=== PATIENT | male | born 1945 | race Caucasian/White ===

== ENCOUNTER 2020-02-05 09:29 | Outpatient (CLI) | payer MEDICARE, SELFPAY ==
[2020-02-05 09:43] LABS: Basophils Absolute Auto 0.1 K/mm3 (0.0-0.1); Basophils Percent Auto 0.9 % (0.2-1.2); Eosinophils Absolute Auto 0.3 K/mm3 (0-0.3); Eosinophils Percent Auto 4.3 % (0-4.4); Hematocrit 44.3 % (42.0-52.0); Hemoglobin 14.5 g/dL (14.0-18.0); Immature Granulocyte Absolute 0.01 K/mm3 (0.00-0.031); Immature Granulocyte Percent A 0.2 % (0-0.5); Lymphocytes Absolute Auto 1.79 K/mm3 (0.9-3.2); Lymphocytes Percent Auto 27.5 % (18.3-44.2); Mean Corpuscular HGB Conc 32.7 g/dl (32-36); Mean Corpuscular Hemoglobin 30.4 pg (26-34); Mean Corpuscular Volume 92.9 fl (80-100); Mean Platelet Volume 8.6 fl (7.4-10.4); Monocytes Absolute Auto 0.5 K/mm3 (0.1-0.6); Monocytes Percent Auto 8.1 % (2.6-8.5); Neutrophils Absolute Auto 3.8 K/mm3 (1.3-6.7); Platelet Count Result 173 k/mm3 (150-375); Red Blood Count 4.77 M/mm3 (4.6-6.20); White Blood Count 6.5 K/mm3 (4.5-10.0)
[2020-02-05 10:46] LABS: Alanine Aminotransferase 17 U/L (4-50); Albumin Level 4.5 g/dL (3.5-5.1); Alkaline Phosphatase 82 U/L (38-126); Aspartate Amino Transferase 23 U/L (17-59); Bilirubin,Total 0.6 mg/dL (0.2-1.3); Blood Urea Nitrogen 16 mg/dL (9-20); Calcium 9.1 mg/dL (8.4-10.2); Carbon Dioxide 29 mmol/L (22-30); Chloride 102 mmol/L (98-107); Estimated Glomerular Filt Rate > 60; Glucose 92 mg/dL (75-110); Lactate Dehydrogenase 343 U/L (313-618); Potassium 4.8 mmol/L (3.4-5.0); Sodium 135 mmol/L (137-145)
== END 2020-02-05 09:30 | disposition home or self-care (01) ==
LOC: ANHLAB 09:32
PROVIDERS: PCP Physician Assistant; Visit Provider Internal Medicine Hematology & Oncology
DX: C85.80 Other specified types of non-Hodgkin lymphoma, unspecified site (principal)
CPT/HCPCS: 36415; 80053; 83615; 85025

== ENCOUNTER 2020-12-01 09:22 | Outpatient (CLI) | payer MEDICARE, SELFPAY ==
[2020-12-01 09:36] LABS: Basophils Absolute Auto 0.1 K/mm3 (0.0-0.1); Basophils Percent Auto 0.6 % (0.2-1.2); Eosinophils Absolute Auto 0.3 K/mm3 (0-0.3); Eosinophils Percent Auto 3.2 % (0-4.4); Hematocrit 45.1 % (42.0-52.0); Hemoglobin 14.9 g/dL (14.0-18.0); Immature Granulocyte Absolute 0.03 K/mm3 (0.00-0.031); Immature Granulocyte Percent A 0.4 % (0-0.5); Lymphocytes Absolute Auto 1.83 K/mm3 (0.9-3.2); Lymphocytes Percent Auto 22.3 % (18.3-44.2); Mean Corpuscular Hemoglobin 31.1 pg (26-34); Mean Corpuscular Volume 94.2 fl (80-100); Mean Platelet Volume 8.6 fl (7.4-10.4); Monocytes Absolute Auto 0.7 K/mm3 (0.1-0.6); Neutrophils Absolute Auto 5.4 K/mm3 (1.3-6.7); Neutrophils Percent Auto 65.5 % (45.5-73.1); Platelet Count Result 185 k/mm3 (150-375); Red Blood Count 4.79 M/mm3 (4.6-6.20); Red Cell Distribution Width 12.2 % (11.5-14.5); White Blood Count 8.2 K/mm3 (4.5-10.0)
[2020-12-01 15:38] LABS: Alanine Aminotransferase 27 U/L (4-50); Albumin Level 4.9 g/dL (3.5-5.1); Alkaline Phosphatase 78 U/L (38-126); Anion Gap 7 mmol/L (8-16); Aspartate Amino Transferase 33 U/L (17-59); Bilirubin,Total 1.1 mg/dL (0.2-1.3); Blood Urea Nitrogen 17 mg/dL (9-20); Calcium 9.7 mg/dL (8.4-10.2); Carbon Dioxide 30 mmol/L (22-30); Chloride 102 mmol/L (98-107); Estimated Glomerular Filt Rate > 60; Glucose 96 mg/dL (75-110); Lactate Dehydrogenase 369 U/L (313-618); Potassium 4.6 mmol/L (3.4-5.0); Sodium 139 mmol/L (137-145)
== END 2020-12-01 09:23 | disposition home or self-care (01) ==
LOC: ANHLAB 09:24
PROVIDERS: PCP Physician Assistant; Visit Provider Internal Medicine Hematology & Oncology
DX: C85.80 Other specified types of non-Hodgkin lymphoma, unspecified site (principal)
CPT/HCPCS: 36415; 80053; 83615; 85025

== ENCOUNTER 2021-09-08 07:45 | Outpatient (CLI) | payer MEDICARE, SELFPAY ==
[2021-09-08 08:05] VITALS: PULSE 84; PULSE 89; O2SAT 87; O2SAT 96
[2021-09-08 08:10] VITALS: PULSE 92; O2SAT 92
[2021-09-08 08:15] VITALS: PULSE 88; O2SAT 91
--- NOTE | 2021-09-08 09:41 | HOMEO2EVAL ---
Evaluation was performed at [facility] Home Oxygen Evaluation RC: Home Oxygen (O2) Evaluation Start: 09/08/21 09:37 Freq: Status: Active Protocol: RPE Activity Type Activity Date Activity User E-Sign Co-Sign Detail Recorded Client Recorded Date Recorded By Document 09/08/21 08:05 KMV [email or web address] 09/08/21 09:40 KMV Document 09/08/21 08:05 KMV [email or web address] 09/08/21 09:40 KMV Document 09/08/21 08:10 KMV [email or web address] 09/08/21 09:40 KMV Document 09/08/21 08:15 KMV [email or web address] 09/08/21 09:40 KMV 09/08/21 09/08/21 09/08/21 08:05 08:05 08:10 Home O2 Evaluation Test Phase Resting Exercise Exercise Oxygen Delivery Room Air Room Air Nasal Cannula Oxygen Flow Rate (L/min) 2 Pulse Oximetry (90-100 %) 96 87 L 92 Pulse Rate (60-100 beats/min) 84 89 92 Activity Tolerance Good Rating of Perceived Dyspnea (PD) +3 Moderate Difficulty, But Can Continue Rate of Perceived Exertion (PE) 12 Treatment Charges O2 Evaluation - Outpatient 09/08/21 08:15 Home O2 Evaluation Test Phase Resting Oxygen Delivery Room Air Oxygen Flow Rate (L/min) Pulse Oximetry (90-100 %) 91 Pulse Rate (60-100 beats/min) 88 Activity Tolerance Rating of Perceived Dyspnea (PD) Rate of Perceived Exertion (PE) Treatment Charges
== END 2021-09-08 07:46 | disposition home or self-care (01) ==
PROVIDERS: PCP Physician Assistant; Visit Provider Nurse Practitioner
DX: J44.9 Chronic obstructive pulmonary disease, unspecified (principal)
CPT/HCPCS: 94618

== ENCOUNTER 2021-09-24 08:54 | Outpatient (CLI) | payer MEDICARE, SELFPAY ==
--- NOTE | 2021-09-24 12:08 | P.PCNPFT_ITS ---
PFT Procedure Performed PFT Procedure Performed Spirometry with Pre/Post Bronchodilator Plethysmography (Lung Vol) Diffusing Cap (DLCO) Flow Vol Loop PFT Interpretation This is a pulmonary function test with pre and post-bronchodilator spirometry, plethysmography and diffusing capacity. The test was performed and results interpreted in accordance with the 2019 and 2005 ATS/ERS Task Force guidelines respectively using the Global Lung Function Initiative-2012 reference equations. Patient demonstrated good effort and cooperation. Reproducibility criteria were met. The quality of the pre bronchodilator spirometry maneuver was Grade A and post bronchodilator spirometry maneuver was Grade A. Findings: Spirometry: There is decreased maximal expiratory airflow at all lung volumes with concave expiratory flow tracing. Contour the inspiratory flow tracing is normal. The pre bronchodilator FVC is 2.87 L, 79% predicted. The pre bronchodilator FEV1 is 1.04 L, 38% predicted. The FEV1: FVC ratio was 36%. The post bronchodilator FVC is 3.16 L, representing a 10% increase. The post bronchodilator FEV1 is 1.17 L, representing a 130 mL increase which corresponds to a 12% increase. The post bronchodilator FEV1: FVC ratio is 37%. Plethysmography: The total lung capacity is 7.62 L, 117% predicted. The f unctional residual capacity is 5.86 L, 169% predicted. The residual volume is 4.58 L, 187% predicted. Diffusing capacity: The diffusing capacity unadjusted for hemoglobin is 15.0, 64% predicted. The diffusing capacity adjusted for alveolar volume is 3.31, 86% predicted. In comparison to previous pulmonary function test on 12/12/2017 the post bronchodilator FVC has decreased from 3.81 L to 3.16 L. The post bronchodilator FEV1 has decreased from 1.49 L to 1.17 L. The total lung capacity is unchanged from 8.63 L to 7.62 L. The functional residual capacity is unchanged from 6.50 L to 5.86 L. The residual volume is unchanged from 4.82 L to 4.58 L. The diffusing capacity unadjusted for hemoglobin is unchanged from 14.8 to 15.0. The diffusing capacity adjusted for alveolar volume is unchanged from 3.34 to 3.31 Impression: There is a severe obstructive abnormality without significant improvement after inhaling a single dose of albuterol. The increase in residual volume is consistent with air trapping from an obstructive abnormality. Hyperinflation is present is demonstrated by the increase in functional residual capacity and is consistent with an obstructive abnormality. The diffusing capacity unadjusted for hemoglobin is mildly decreased and normalizes when adjusted for alveolar volume. in comparison to previous pulmonary function test on 12/12/2017 there is a greater than anticipated time dependent decrease in post bronchodilator FVC, post bronchodilator FEV1 with no significant change in the total lung capacity, functional residual capacity, residual volume, or DLCO. Clinical correlation is recommended.
== END 2021-09-24 08:55 | disposition home or self-care (01) ==
PROVIDERS: PCP Physician Assistant; Visit Provider Nurse Practitioner
DX: J44.9 Chronic obstructive pulmonary disease, unspecified (principal); R94.2 Abnormal results of pulmonary function studies
CPT/HCPCS: 94060; 94726; 94729

== ENCOUNTER 2021-11-25 09:35 | Outpatient (CLI) | payer MEDICARE, SELFPAY ==
[2021-11-25 09:59] LABS: Basophils Percent Auto 0.4 % (0.2-1.2); Eosinophils Absolute Auto 0.1 K/mm3 (0-0.3); Eosinophils Percent Auto 1.1 % (0-4.4); Hematocrit 47.9 % (42.0-52.0); Hemoglobin 15.1 g/dL (14.0-18.0); Immature Granulocyte Absolute 0.07 K/mm3 (0.00-0.031); Immature Granulocyte Percent A 0.7 % (0-0.5); Lymphocytes Absolute Auto 1.83 K/mm3 (0.9-3.2); Lymphocytes Percent Auto 19.5 % (18.3-44.2); Mean Corpuscular HGB Conc 31.5 g/dl (32-36); Mean Corpuscular Hemoglobin 30.6 pg (26-34); Mean Platelet Volume 8.7 fl (7.4-10.4); Monocytes Absolute Auto 0.6 K/mm3 (0.1-0.6); Monocytes Percent Auto 6.8 % (2.6-8.5); Neutrophils Absolute Auto 6.7 K/mm3 (1.3-6.7); Neutrophils Percent Auto 71.5 % (45.5-73.1); Platelet Count Result 184 k/mm3 (150-375); Red Blood Count 4.94 M/mm3 (4.6-6.20); White Blood Count 9.4 K/mm3 (4.5-10.0)
[2021-11-25 12:07] LABS: Alanine Aminotransferase 26 U/L (4-50); Albumin Level 4.5 g/dL (3.5-5.1); Alkaline Phosphatase 74 U/L (38-126); Anion Gap 2 mmol/L (8-16); Aspartate Amino Transferase 27 U/L (17-59); Bilirubin,Total 0.6 mg/dL (0.2-1.3); Blood Urea Nitrogen 22 mg/dL (9-20); Calcium 9.4 mg/dL (8.4-10.2); Carbon Dioxide 32 mmol/L (22-30); Chloride 102 mmol/L (98-107); Estimated Glomerular Filt Rate > 60; Glucose 79 mg/dL (65-110); Lactate Dehydrogenase 388 U/L (313-618); Potassium 4.7 mmol/L (3.4-5.0); Sodium 136 mmol/L (137-145)
== END 2021-11-25 09:36 | disposition home or self-care (01) ==
LOC: ANHLAB 09:39
PROVIDERS: PCP Physician Assistant; Visit Provider Internal Medicine Hematology & Oncology
DX: C85.80 Other specified types of non-Hodgkin lymphoma, unspecified site (principal)
CPT/HCPCS: 36415; 80053; 83615; 85025

== ENCOUNTER 2022-05-03 07:04 | Inpatient (IN) | payer MEDICARE, SELFPAY ==
[2022-05-03] VITALS (27 sets, daily range): BP systolic 103–170; BP diastolic 65–103; PULSE 78–112; RESP 11–24; TEMP 36.3–36.6; O2SAT 94–100; BMI 26.1
--- NOTE | ~2022-05-03 | US_ITS ---
EXAMINATION: US abdomen limited DATE: 05/03/2022 17:14 INDICATION: pancreatitis, r/o gallstones TECHNIQUE: Multiple grayscale and Doppler ultrasound images of limited portions of the abdomen were o btained. COMPARISON: CTPA abdomen and pelvis, same date. FINDINGS: Poorly visualized. Echogenic liver. No liver mass. No surface nodularity. Normal hepatopeta l flow in the main portal vein. The gallbladder is normal with no abnormal wall thickening, perichole cystic fluid or stones. The common bile duct measures 5 mm. There was no sonographic Max sign. IMPRESSION: Poor visualization of the pancreas. Echogenic liver, most commonly due to steatosis but also can be s een with hepatitis and fibrosis. No gallstones detected. Reviewed, dictated and finalized at location K. IMPRESSION: Poor visualization of the pancreas. Echogenic liver, most commonly due to steat osis but also can be seen with hepatitis and fibrosis. No gallstones detected.
--- NOTE | ~2022-05-03 | CT_ITS ---
EXAMINATION: CTA chest PE abdomen pel DATE: 05/03/2022 08:43 INDICATION: Epigastric abdominal pain. TECHNIQUE: Computed tomography angiography (CTA) of the chest was performed with 100 mL Omnipaque-350 intravenous contrast timed to evaluate the pulmonary arteries. Coronal maximum intensity projection 3D-reconstructions were created by the technologist. Computed tomography (CT) of the abdomen and pelv is was performed with intravenous contrast. Automated exposure control and iterative reconstruction t echnique were employed. The dose-length product was 1051.33 mGy-cm. COMPARISON: None. FINDINGS: CTA chest: There is moderate emphysema. There is mild atelectasis bilaterally. No pleural effusion. T he heart size is normal. There are coronary artery calcifications. No pericardial effusion. There is no pulmonary embolus. There is mild thoracic spondylosis. Thoracic dextroscoliosis is noted. There is mild chronic anterior wedging of T12 vertebral body. CT abdomen and pelvis: The liver, gallbladder, spleen, and adrenal glands are normal. There is fat st randing around the body and tail of the pancreas, consistent with acute interstitial pancreatitis. Th ere is a calcification in the tail of the pancreas, consistent with chronic pancreatitis. Right kidne y is normal. There is moderate atrophy of left kidney. There is a 7 mm cyst in left kidney. The prost ate is mildly enlarged. There is a right inguinal hernia containing nonobstructed small bowel. There is a left inguinal hernia containing fat. There is diverticulosis of the colon without evidence of di verticulitis. The appendix is normal. There are no dilated loops of bowel. There are no pathologicall y enlarged lymph nodes. There is no free intraperitoneal fluid. There is moderate lumbar spondylosis. Lumbar levoscoliosis is noted. IMPRESSION: 1. Acute interstitial pancreatitis. 2. Moderate emphysema. 3. Right inguinal hernia containing nonobstructed small bowel. 4. Left inguinal hernia containing fat. Reviewed, dictated and finalized at location A.
--- NOTE | ~2022-05-03 | XR_ITS ---
EXAMINATION: XR chest 2V DATE: 05/03/2022 07:51 INDICATION: Shortness of breath and epigastric pain TECHNIQUE: Frontal and lateral views of the chest are obtained COMPARISON: 12/04/2018 FINDINGS: There are minimal airspace opacities of the right lung base. No pleural effusion or pneumot horax. The cardiomediastinal silhouette is normal. There is mild thoracic spondylosis. IMPRESSION: 1. Minimal right basilar airspace opacity, likely atelectasis versus pneumonia Reviewed, dictated and finalized at location A.
--- NOTE | 2022-05-03 07:16 | ECG_ITS ---
Measurements Intervals [place] Rate: 108 P: ND: 0 QRS: -49 QRSD: 80 T: 79 QT: 307 QTc: 412 Interpretive Statements SINUS TACHYCARDIA LEFTWARD AXIS Electronically Signed On 05-03-2022 8:53:42 CDT by Harsh Mckeon M.D.
--- NOTE | 2022-05-03 07:38 | ED.SOB ---
HPI - SOB/Dyspnea General Chief Complaint: Shortness of Breath/Dyspnea Stated Complaint: Chest pain/SOB Time Seen by Provider: 05/03/22 07:37 Source: patient Mode of arrival: ambulatory Limitations: no limitations History of Present Illness HPI Narrative: 76 years old white male presented to the ED with epigastric pain, started 2 months ago, intermittent, steady over the last 3 days associated with nausea. He denies any fever, chills, vomiting. Patient denies any history of abdominal surgery. Related Data Allergies Allergy/AdvReac Type Severity Reaction Status Date / Time No Known Allergies Allergy Verified 05/03/22 07:18 Review of Systems Review of Systems: All systems reviewed & are unremarkable except as noted in HPI and below Exam Narrative: General appearance: Well-developed, well-nourished Skin: Normal color Head: Normocephalic, nontraumatic Eyes: Clear conjunctiva ENT: Oropharynx normal, ears normal, nose normal Neck: Supple, nontender Chest and respiratory: Airway patent, no respiratory distress, no accessory muscle use Heart: Regular rate/rhythm Abdomen: Soft, severe tenderness epigastric area, quiet bowel sounds, no organomegaly Vascular: Normal peripheral pulses, normal capillary refill. Musculoskeletal: Normal range of motion, nontender back Neurologic: Alert and oriented ?3, PHYSICIAN'S ASSISTANT is normal as tested, no gross motor deficit Course Consultations Consultation #1: Dr. Escobedo Date: 05/03/22 Time: 10:06 Vital Signs Vital signs: Vital Signs Temperature 36.6 C 05/03/22 07:11 Pulse Rate 110 H 05/03/22 07:11 Respiratory Rate 18 05/03/22 07:11 Blood Pressure 170/103 H 05/03/22 07:11 Pulse Oximetry 98 05/03/22 07:11 Oxygen Delivery Nasal Cannula 05/03/22 07:11 Oxygen Flow Rate 2 05/03/22 07:11 Temperature 36.6 C 05/03/22 07:11 Pulse Rate 88 05/03/22 09:31 Respiratory Rate 17 05/03/22 09:31 Blood Pressure 149/81 H 05/03/22 09:31 Pulse Oximetry 98 05/03/22 09:31 Oxygen Delivery Nasal Cannula 05/03/22 08:22 Oxygen Flow Rate 2 05/03/22 08:22 MDM - SOB/Dyspnea Differential Diagnosis Differential diagnosis: Likely pulmonary embolism and other (Cholecystitis, pancreatitis, diverticulitis) Lab Data Result diagrams: 05/03/22 07:42 05/03/22 07:42 Labs: Lab Results 05/03/22 05/03/22 05/03/22 Range/Units 07:42 07:42 07:42 WBC 11.3 H (4.5-10.0) K/mm3 RBC 4.96 (4.6-6.20) M/mm3 Hgb 15.0 (14.0-18.0) g/dL Hct 45.8 (42.0-52.0) % MCV 92.3 (80-100) fl MCH 30.2 (26-34) pg MCHC 32.8 (32-36) g/dl RDW 12.9 (11.5-14.5) % Plt Count 229 (150-375) k/mm3 MPV 8.8 (7.4-10.4) fl Immature Gran % (Auto) 1.5 H (0-0.5) % Neut % (Auto) 72.2 (45.5-73.1) % Lymph % (Auto) 13.8 L (18.3-44.2) % Hawkins % (Auto) 8.1 (2.6-8.5) % Eos % (Auto) 4.1 (0-4.4) % Baso % (Auto) 0.3 (0.2-1.2) % Lymph # (Auto) 1.56 (0.9-3.2) K/mm3 Hawkins # (Auto) 0.9 H (0.1-0.6) K/mm3 Eos # (Auto) 0.5 H (0-0.3) K/mm3 Baso # (Auto) 0.0 (0.0-0.1) K/mm3 Abs Immat Gran (auto) 0.17 H (0.00-0.031) K/mm3 Absolute Neuts (auto) 8.2 H (1.3-6.7) K/mm3 Absolute Nucleated RBC 0.0 (0.0-0.012) K/mm3 Nucleated RBC % 0.0 (0.0-0.2) % PT 13.6 (11.1-14.7) Seconds INR 1.1 APTT 27.8 (22.3-36.8) SECONDS D-Dimer 0.50 H (<0.48) ug/mL Sodium 133 L (137-145) mmol/L Potassium 4.4 (3.4-5.0) mmol/L Chloride 94 L (98-107) mmol/L Carbon Dioxide 28 (22-30) mmol/L Anion Gap 11 (8-16) mmol/L BUN 24 H (9-20) mg/dL Creatinine 1.00 (0.7-1.3) mg/dL Estim Creat Clear Calc
[2022-05-03 07:51] LABS: Basophils Percent Auto 0.3 % (0.2-1.2); Eosinophils Absolute Auto 0.5 K/mm3 (0-0.3); Eosinophils Percent Auto 4.1 % (0-4.4); Hematocrit 45.8 % (42.0-52.0); Immature Granulocyte Absolute 0.17 K/mm3 (0.00-0.031); Immature Granulocyte Percent A 1.5 % (0-0.5); Lymphocytes Absolute Auto 1.56 K/mm3 (0.9-3.2); Lymphocytes Percent Auto 13.8 % (18.3-44.2); Mean Corpuscular HGB Conc 32.8 g/dl (32-36); Mean Corpuscular Hemoglobin 30.2 pg (26-34); Mean Corpuscular Volume 92.3 fl (80-100); Mean Platelet Volume 8.8 fl (7.4-10.4); Monocytes Absolute Auto 0.9 K/mm3 (0.1-0.6); Monocytes Percent Auto 8.1 % (2.6-8.5); Neutrophils Absolute Auto 8.2 K/mm3 (1.3-6.7); Neutrophils Percent Auto 72.2 % (45.5-73.1); Platelet Count Result 229 k/mm3 (150-375); Red Blood Count 4.96 M/mm3 (4.6-6.20); Red Cell Distribution Width 12.9 % (11.5-14.5); White Blood Count 11.3 K/mm3 (4.5-10.0)
[2022-05-03 07:58] LABS: INR 1.1; Prothrombin Time 13.6 Seconds (11.1-14.7)
[2022-05-03 07:59] LABS: Partial Thromboplastin Time 27.8 SECONDS (22.3-36.8)
[2022-05-03 08:06] LABS: Alanine Aminotransferase 18 U/L (6-50); Albumin Level 4.6 g/dL (3.5-5.1); Alkaline Phosphatase 97 U/L (38-126); Anion Gap 11 mmol/L (8-16); Aspartate Amino Transferase 27 U/L (17-59); Bilirubin,Total 1.7 mg/dL (0.2-1.3); Blood Urea Nitrogen 24 mg/dL (9-20); Calcium 9.5 mg/dL (8.4-10.2); Carbon Dioxide 28 mmol/L (22-30); Chloride 94 mmol/L (98-107); Estimated CRCL calculation 53 ml/min; Estimated Glomerular Filt Rate > 60; Glucose 103 mg/dL (65-110); Potassium 4.4 mmol/L (3.4-5.0); Sodium 133 mmol/L (137-145)
[2022-05-03 08:12] LABS: Lipase 3211 U/L (23-300)
[2022-05-03 08:20] LABS: NT Pro B Type Natriuretic Pept 43 pg/mL (5-100); Troponin I < 0.012 ng/mL (0.000-0.034)
[2022-05-03] MEDS: MORPHINE SULFATE (*CRX) 4 MG/ML INJ IV PUSH (08:20)
--- NOTE | 2022-05-03 08:20 | PC.NURSE ---
Morphine 4 mg and Zofran 4 mg given IVP for chest pain 01/11. Unable to document in NOV due to computer malfunction.
[2022-05-03] MEDS: ONDANSETRON INJ 4 MG/2 ML VIAL IV PUSH ×2 (08:47→18:17)
[2022-05-03 10:25] LABS: Troponin I < 0.012 ng/mL (0.000-0.034)
--- OUTSIDE RECORDS SUMMARY | 2022-05-03 10:40 | XMS_ITS ---
:1945 Author Care Team Providers Name Role Phone ROSA ALIYAH PINEDO Primary Care Provider [phone] Allergies Code Code System Name Reaction Severity Status Onset NKDA ? Notes: Some allergies listed in Docume nt: #[id number] could not be added to this patient's chart. Please review this docu ment and add these allergies to the patient's chart manually as needed. Medications Name Status Start Date Stop Date ? ? amlodipine 10 mg tablet Completed ? 10/31/19 19 amlodipine 5 mg tablet Active ? Not avail able amoxicillin 875 mg-potassium clavulanate 125 mg tablet Active ? Not available Take 1 tablet twice a day by oral route as directed for 10 days . Anoro Ellipta 62.5 mcg-25 mcg/actuation powder for inhalation Co mpleted ? 07/16/2018 Inhale 1 puff every day by inhalation route as directed for 30 days. atenolol 50 mg tablet Completed ? 02/08/2018 Caltrate + D3 Plus Minerals Completed ? 10/06 one daily cefuroxime axetil 250 mg tablet Completed ? 10/04/2017 ciprofloxacin 500 mg tablet Completed ? 02/02 cyclobenzaprine 5 mg tablet Completed ? 02/04 TAKE 1 TABLET BY MOUTH THREE TIMES DAILY NEEDED doxycycline hyclate 100 mg capsule Completed ? 10/31/2018 levofloxacin 750 mg tablet Completed ? 04/30 losartan 100 mg tablet Active ? Not avail able methylprednisolone 4 mg tablets in a dose pack Completed ? 04/30/2019 ondansetron HCl 4 mg tablet Completed ? 04/05 TAKE 1 TABLET BY MOUTH EVERY 8 HOURS NEEDED FOR NAUSEA EMESI S oseltamivir 75 mg capsule Completed ? 2021 TAKE 1 CAPSULE BY MOUTH TWICE DAILY prednisone 1
--- OUTSIDE RECORDS SUMMARY | 2022-05-03 10:40 | XMS_ITS | Encounter Summary ---
:1945 Author Care Team Providers Name Role Phone Skye PINEDO Primary Care Provider [phone] Reason for Visit F/U Hospital (non TRN) f/u from hospital admission Assessment and Plan 1. Pneumonia pt had pneumonia in recent hospitalizat ion with COPD exacerbation. check repeat CXR. ? XR, chest, 2 view 2. Acute exacerbation of chronic obstru ctive airways disease improving. stable. on portable oxygen. Discussion Note: None recorded.Patient educational handouts: No information available. Plan of Care Reminders Provider Appointments Any 06/01/2022 CANDICE Ponce 9:00AM ? Any 09/23/2022 CANDICE Ponce 9:30AM ? Medicare Wellness 11/09/2022 SHAHIDA Shirley 9:30AM Lab None recorded. ? ? Referral None recorded. ? ? Procedures None recorded. ? ? Surgeries None recorded. ? ? Imaging XR, Chest, 2 View 02/24/2022 [facility] Medications Name Start Date ? ? amlodipine 5 mg tablet ? TAKE 1 TABLET EVERY DAY amoxicillin 875 mg-potassium clavulanate 125 mg tablet ? Take 1 tablet twice a day by oral route as directed f or 10 days. losartan 100 mg tablet ? TAKE 1 TABLET EVERY DAY prednisone 20 mg tablet ? Take 2 tablets every day by oral route in the morning for 5 days. Trelegy Ellipta 200 mcg-62.5 mcg-25 mcg powder for inh alation ? Inhale 1 puff every day by inhalation route as direct ed for 90 days. Ventolin HFA 90 mcg/actuation aerosol inhaler ? inhale 1-2
--- OUTSIDE RECORDS SUMMARY | 2022-05-03 10:40 | XMS_ITS ---
:1945 Author Care Team Providers Name Role Phone ROSA PINEDO Primary Care Provider [phone] Allergies Code Code System Name Reaction Severity Status Onset NKDA ? Medications Name Status Start Date Stop Date ? ? amlodipine 10 mg tablet Completed ? 03/14/20 19 amlodipine 5 mg tablet Active ? Not avail able amoxicillin 875 mg-potassium clavulanate 125 mg tablet Completed ? 03/11/2020 Anoro Ellipta 62.5 mcg-25 mcg/actuation powder for inhalation Co mpleted ? 07/16/2018 Inhale 1 puff every day by inhalation route as directed for 30 days. One puff daily, discontinue Symbicort atenolol 50 mg tablet Completed ? 02/08/2018 cefuroxime axetil 250 mg tablet Completed ? 02/08/2018 ciprofloxacin 500 mg tablet Completed ? 03/2018 doxycycline hyclate 100 mg capsule Completed ? 09/11/2019 levofloxacin 750 mg tablet Completed ? 03/14 losartan 100 mg tablet Active ? Not avail able methylprednisolone 4 mg tablets in a dose pack Completed ? 03/14/2019 ondansetron HCl 4 mg tablet Completed ? 04/2020 TAKE 1 TABLET BY MOUTH EVERY 8 HOURS NEEDED FOR NAUSEA EMESI S prednisone 20 mg tablet Completed ? 09/11/19 20 Symbicort 160 mcg-4.5 mcg/actuation HFA aerosol inhaler Active ? Not available valsartan 160 mg tablet Completed ? 03/14/20 19 Ventolin HFA 90 mcg/actuation aerosol inhaler Completed ? 03/14/2019 Problems Name Status Onset Date Source ? Asthma Active 10/31/2017 ? History of Tobacco Use Active 08/09/2018 ? Notes: lymhpoma Procedures Date Name Performed by ? 09/04/2004 Repair of Ruptured Tendon Information no t a
--- OUTSIDE RECORDS SUMMARY | 2022-05-03 10:40 | XMS_ITS | Encounter Summary ---
:1945 Author Care Team Providers Name Role Phone Skye PINEDO Primary Care Provider [phone] Reason for Visit routine check up routine f/u appt Assessment and Plan 1. Chronic obstructive lung disease stable on symbicort 160/4.5mcg 2 puffs bid. 2. Benign essential hypertension stable on amlodipine 5mg daily and losa rtan 100mg daily. 3. Polymyalgia rheumatica now taking 5mg daily and will be on 2.5 mg for next step. then 1mg daily. 4. Hyperlipidemia fasting lipids are due. ? lipid panel, serum 5. Long-term oxygen therapy pt is going to discuss increasing his l iters for activity on his appt next week with Pulmonary. 6. 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 follows with oncraegan lozada 7. Blood glucose abnormal monitoring A1c with [facility] use of pr ednisone for PMR ? HbA1c (hemoglobin A1c), blood 8. Long-term drug therapy all routine labs are due in may. ? hepatic function panel, serum ? BMP, serum or plasma ? CBC w/ auto diff ? TSH + free T4, serum Discussion Note: None recorded.Patient educational handouts: No information available. Plan of Care Reminders Provider Appointments Any 06/01/2022 9:00AM CANDICE Martínez ? Any 09/23/2022 9:30AM CANDICE Martínez ? Medicare Wellness 11/09/2022 9:30AM SHAHIDA Gonzáles Lab Lipid Panel,
--- OUTSIDE RECORDS SUMMARY | 2022-05-03 10:40 | XMS_ITS | Encounter Summary ---
:1945 Author Care Team Providers Name Role Phone Skye PINEDO Primary Care Provider [phone] Reason for Visit F/U Hospital (non TRN) exac of COPD, was at [facility] approx February 12, 2022 Assessment and Plan Assessment Note Spent up to 20 minutes preparing to see the patient (eg, review of tests), obtaining and/or reviewing separately obtained his tory, performing a medically appropriate examination and evaluation, counseling a nd educating the patient, ordering medications, tests, along with documenti ng clinical information in the electronic health record, independently interpretin g results and communicating results to the patient. 1. Chronic obstructive lung disease PFT 09/24/21 FEV1:FVC ratio 36%. FEV1 38% Improvement of 12% after bronchodilator TLC 117 DLCO 64 Alpha 1 normal MM Eosinophils normal Continue Trelegy Ellipta 200, samples to patient today. We have discussed the role of triple the rapy in severe lung disease and I have encouraged compliance daily. I have discouraged Symbicort alternating Continue rescue MDI PRN. Discussed reportable signs and symptoms. RTC in 2 months, PRN for concerns. 2. Dyspnea on exertion Labs as detailed above. Six minute walk test as above Recommend pulmonary rehab, he will consi zeny 3. Dependence on supplemental oxygen Required 2 liters with activity an RA a t rest per 6MWT 09/08/21
[2022-05-03] MEDS: SODIUM CHLORIDE 0.9% IV 1,000 ML 250 ML IV CONT ×3 (12:45→22:00)
[2022-05-03] MEDS: HYDROmorphone HCL INJ (*CRX) 1 MG/ML SYR 0.5 MG IV PUSH ×3 (12:46→21:56)
[2022-05-03 13:43] LABS: Troponin I < 0.012 ng/mL (0.000-0.034)
--- NOTE | 2022-05-03 14:10 | PM.IMHP ---
H&P: HPI History of Present Illness Date/Time: 05/03/22 14:10 Chief Complaint: Epigastric pain. Narrative: This is a very pleasant 76-year-old male with COPD on home oxygen, hypertension, polymyalgia rheumatica, hypertension, and non-Hodgkin lymphoma and hypertension who presented to the emergency department from home for evaluation of epigastric pain. He has had intermittent, vague epigastric discomfort for the last month or so however the last 2 or 3 days the pain has become more consistent and intends. He has difficulties describing the pain but he does say that he feels quite bloated and distended. He has only had some egg salad and old male the last couple of days due to a decrease in appetite however he has not really noticed that food makes his pain better or worse. He has also had nausea but no vomiting. Vital signs were stable on arrival today. Pertinent labs include a white blood cell count of 11.3, sodium 133, and lipase 3211. Imaging did show acute interstitial pancreatitis and he is being admitted in this setting. At the time my evaluation he is feeling a bit better but he continues to have bloating. He is thirsty but not really hungry. He denies personal and family history of pancreatitis. He was previously a heavy drinker but has not drank in over 10 years. He has no known history of gallbladder disease or gallstones. No other known risk factors for pancreatitis. Review of Systems Review of Systems: Twelve systems were reviewed. Weight has remained stable. He is intermittently prednisone for symptoms related to his polymyalgia rheumatica though not on daily steroids. He has been treated for non-Hodgkin's lymphoma and is my understanding that that is in remission potentially. He has been following with urology for elevated PSA. No fever, chills, or sweats however last week he did have of fever and he was prescribed Augmentin ?given history of frequent pneumonia. Chest pain or shortness of breath. No melena or hematochezia. Except as documented, all other systems were reviewed and are negative. [facility] Past Medical History Medical History (Updated 05/03/22 @ 21:25 by Mirna Leija PA-C) Chronic obstructive pulmonary disease Diverticulitis Elevated PSA Hypertension Non Hodgkin's lymphoma Polymyalgia rheumatica Rupture of left biceps tendon Surgical History Surgical History (Updated 05/03/22 @ 14:13 by Mirna Leija PA-C) History of colonoscopy (01/2011) Per Dr. Sohan Escobedo. Diverticulosis and internal hemorrhoids. History of mandibular surgery (1963) Repair of broken jaw. History of orthopedic surgery Repair of left bicep tendon rupture. Family History Family History Father Acute myocardial infarction Sibling Hypertension Son Leukemia Sibling Breast cancer Social History Social History Social History: Surrogate medical decision maker: Bianca Constantino, spouse. Code status: Full code. Smoking status: Former smoker Tobacco type: cigarettes Second hand tobacco smoke exposure: No Alcohol intake: former Substance use: never Additional living arrangements comments: The patient lives with his in [place]. Additional occupation/education comments: Retired. Spiritual care concerns: No Meds Home Medications and Allergies Home Medications Medication Instructions Recorded Confirmed Type albuterol sulfate 2 puff inhalation PRN PRN Dyspnea 05/03/22 05/03/22 History amlodipine 5 mg tablet 5 mg PO DAILY 05/03/22 05/03/22 History amoxicillin 875 mg-potassium 1 tablet PO BID 05/03/22 05/03/22 History clavulanate 125 mg tablet cholecalciferol (vitamin D3) 125 125 mcg PO DAILY 05/03/22 05/03/22 History mcg (5,000 unit) tablet (Vitamin D3) fluticasone fur. 200 mcg-umeclid 1 inh inhalation DAILY 05/03/22 05/03/22 History 62.5 mcg-vi
--- NOTE | 2022-05-03 15:03 | WPDGICN ---
Assessment and Plan Assessment and plan (1) Acute pancreatitis: Code(s): K85.90 - Acute pancreatitis without necrosis or infection, unspecified Status: Acute Assessment and Plan: Patient admitted with acute pancreatitis. Etiology unclear. He has a very distant history of alcohol intake. No known gallstones. No gallstones described on CT scan. Plan is for gallbladder ultrasound. Would recommend initially patient be kept NPO monitor lipase. Pain control. Consider advancing diet depending on results of ultrasound and results follow-up lab work. Will follow with you during this hospital stay. (2) Chronic obstructive pulmonary disease: Code(s): J44.9 - Chronic obstructive pulmonary disease, unspecified Status: Acute (3) Polymyalgia rheumatica: Code(s): M35.3 - Polymyalgia rheumatica Status: Acute (4) Hx of non-Hodgkin's lymphoma: Code(s): Z85.72 - Personal history of non-Hodgkin lymphomas Status: Acute GI Consult Note Consult date/time: 05/03/22 15:03 Reason for consult: Acute pancreatitis. HPI: Jin Constantino is a 76 year old male I am asked see at the request of the emergency room. Because of acute pancreatitis. Patient reports over the last 1-2 months has had vague epigastric discomfort. He states over last 2-3 days he has had mid abdominal discomfort rather intense. He of lost his appetite. Because of the intense pain he present to the emergency room in the ER lipase was noted to be elevated. CT scan consistent with acute interstitial pancreatitis. Patient denies any prior episodes of pancreatitis. He states that he used to drink alcohol heavily but discontinued this 10 years ago. He reports he has a past medical history of polymyalgia rheumatica. He currently is being treated with non-Hodgkin's lymphoma and felt to be stable in potentially in remission. He has an elevated PSA to over 10. But no signs of cancer despite follow it by Urology. Patient reports an underlying history of COPD. Two months ago was hospitalized with pneumonia. Colonoscopy 10 years ago was unremarkable. Review of Systems Review of Systems: Review of systems noncontributory. PENDING SALE TO [facility] Past Medical History Medical History (Updated 05/03/22 @ 15:07 by Sohan Escobedo MD) Chronic obstructive pulmonary disease Diverticulitis Hypertension Lymphoma Polymyalgia rheumatica Rupture of left biceps tendon Surgical History Surgical History (Updated 08/30/22 @ 14:13 by Mirna Leija PA-C) History of colonoscopy (01/2011) Per Dr. Sohan Escobedo. Diverticulosis and internal hemorrhoids. History of mandibular surgery (1963) Repair of broken jaw. History of orthopedic surgery Repair of left bicep tendon rupture. Family History Family History Father Acute myocardial infarction Sibling Hypertension Son Leukemia Sibling Breast cancer Social History Social History (Updated 05/03/22 @ 14:15 by Mirna Leija PA-C) Social History: Surrogate medical decision maker: Bianca Constantino, spouse. Code status: Full code. Smoking status: Former smoker Tobacco type: cigarettes Second hand tobacco smoke exposure: No Alcohol intake: former Substance use: never Additional living arrangements comments: The patient lives with his in [place]. Additional occupation/education comments: Retired. Spiritual care concerns: No Meds Home Medications and Allergies Allergies Allergy/AdvReac Type Severity Reaction Status Date / Time No Known Allergies Allergy Verified 05/03/22 11:27 Vital Signs Vital Signs - 24 hr 05/03/22 07:11 05/03/22 08:22 05/03/22 08:22 Temperature 97.8 F Pulse Rate 110 H 88 Respiratory Rate 18 Blood Pressure 170/103 H Pulse Oximetry 98 96 Oxygen Delivery Nasal Cannula Nasal Cannula Oxygen Flow Rate 2 2 05/03/22 07:15 05/03/22 07:1
[2022-05-04] MEDS: HYDROmorphone HCL INJ (*CRX) 1 MG/ML SYR 0.5 MG IV PUSH (04:04)
[2022-05-04 06:00] VITALS: BP 127/60; PULSE 79; RESP 17; TEMP 35.7; O2SAT 93
[2022-05-04] MEDS: SODIUM CHLORIDE 0.9% IV 1,000 ML 250 ML IV CONT (06:16)
[2022-05-04 06:37] LABS: Basophils Percent Auto 0.5 % (0.2-1.2); Eosinophils Absolute Auto 0.5 K/mm3 (0-0.3); Eosinophils Percent Auto 5.8 % (0-4.4); Hematocrit 38.5 % (42.0-52.0); Hemoglobin 12.3 g/dL (14.0-18.0); Immature Granulocyte Absolute 0.08 K/mm3 (0.00-0.031); Lymphocytes Absolute Auto 1.54 K/mm3 (0.9-3.2); Lymphocytes Percent Auto 18.3 % (18.3-44.2); Mean Corpuscular HGB Conc 31.9 g/dl (32-36); Mean Corpuscular Hemoglobin 30.2 pg (26-34); Mean Corpuscular Volume 94.6 fl (80-100); Mean Platelet Volume 9.1 fl (7.4-10.4); Monocytes Percent Auto 11.5 % (2.6-8.5); Neutrophils Absolute Auto 5.3 K/mm3 (1.3-6.7); Neutrophils Percent Auto 62.9 % (45.5-73.1); Platelet Count Result 172 k/mm3 (150-375); Red Blood Count 4.07 M/mm3 (4.6-6.20); Red Cell Distribution Width 12.8 % (11.5-14.5); White Blood Count 8.4 K/mm3 (4.5-10.0)
[2022-05-04 06:49] LABS: Alanine Aminotransferase 13 U/L (6-50); Albumin Level 3.3 g/dL (3.5-5.1); Alkaline Phosphatase 76 U/L (38-126); Anion Gap 8 mmol/L (8-16); Aspartate Amino Transferase 19 U/L (17-59); Blood Urea Nitrogen 19 mg/dL (9-20); Carbon Dioxide 26 mmol/L (22-30); Chloride 100 mmol/L (98-107); Estimated CRCL calculation 53 ml/min; Estimated Glomerular Filt Rate > 60; Glucose 77 mg/dL (65-110); Lipase 1877 U/L (23-300); Magnesium 2.3 mg/dL (1.6-2.3); Potassium 4.5 mmol/L (3.4-5.0); Sodium 134 mmol/L (137-145); Triglycerides 108 mg/dL (<150)
--- NOTE | 2022-05-04 07:47 | WPDGIPROGNO ---
Progress Note: A&P Assessment and Plan (1) Acute pancreatitis: Code(s): K85.90 - Acute pancreatitis without necrosis or infection, unspecified Status: Acute Assessment and Plan: Patient with acute pancreatitis. His lipase has decreased today to 1877. clinically improving. Will start ice chips with clear liquid diet. Continue to monitor lipase. Advance diet to slowly to low fat diet over the next several days. Ultrasound of the gallbladder revealed no gallstones. Suspected idiopathic pancreatitis, Despite patient having a distant history of heavy alcohol use. (2) Chronic obstructive pulmonary disease: Code(s): J44.9 - Chronic obstructive pulmonary disease, unspecified Status: Acute (3) Polymyalgia rheumatica: Code(s): M35.3 - Polymyalgia rheumatica Status: Acute (4) Hx of non-Hodgkin's lymphoma: Code(s): Z85.72 - Personal history of non-Hodgkin lymphomas Status: Acute (5) Non Hodgkin's lymphoma: Code(s): C85.90 - Non-Hodgkin lymphoma, unspecified, unspecified site Status: Acute Subjective Date/time seen: 05/04/22 07:47 Patient alert comfortable this morning. He did receive pain injection and hour prior to evaluation. He reports he did feel pain recur requested pain shot. He has had no nausea vomiting. He is becoming somewhat thirsty. No nausea or vomiting reported. Review of Systems Review of Systems: Review of systems noncontributory. Exam Narrative: Physical exam reveals patient to be alert. Vital signs are stable. He is afebrile. HEENT exam reveals no icterus. Lungs are clear to auscultation and percussion. Heart is without murmur. Abdomen bowel sounds present soft nontender with no organomegaly. Objective Data Vital Signs Vital Signs: Vital Signs - 24 hr 05/03/22 08:22 05/03/22 08:22 05/03/22 07:53 Temperature Pulse Rate 88 101 H Respiratory Rate 18 Blood Pressure Pulse Oximetry 96 100 Oxygen Delivery Nasal Cannula Oxygen Flow Rate 2 05/03/22 07:54 05/03/22 08:02 05/03/22 08:18 Temperature Pulse Rate 99 94 Respiratory Rate 18 20 Blood Pressure 140/85 Pulse Oximetry 100 97 97 Oxygen Delivery Oxygen Flow Rate 05/03/22 08:30 05/03/22 08:45 05/03/22 08:50 Temperature Pulse Rate 88 84 80 Respiratory Rate 12 11 L 14 Blood Pressure 139/73 Pulse Oximetry 97 100 99 Oxygen Delivery Oxygen Flow Rate 05/03/22 09:00 05/03/22 09:01 05/03/22 09:02 Temperature Pulse Rate 81 82 83 Respiratory Rate 14 15 18 Blood Pressure 135/73 Pulse Oximetry 97 97 97 Oxygen Delivery Oxygen Flow Rate 05/03/22 09:17 05/03/22 09:30 05/03/22 09:31 Temperature Pulse Rate 90 96 88 Respiratory Rate 22 H 18 17 Blood Pressure 149/81 H Pulse Oximetry 97 96 98 Oxygen Delivery Oxygen Flow Rate 05/03/22 10:27 05/03/22 10:59 05/03/22 11:30 Temperature 97.3 F L Pulse Rate 88 78 84 Respiratory Rate 20 18 16 Blood Pressure 103/86 130/66 Pulse Oximetry 99 97 100 Oxygen Delivery Oxygen Flow Rate 05/03/22 14:00 05/03/22 11:30 05/03/22 20:40 Temperature 97.8 F Pulse Rate 84 84 Respiratory Rate 15 15 Blood Pressure 136/65 Pulse Oximetry 99 98 99 Oxygen Delivery Nasal Cannula Room Air Oxygen Flow Rate 2 05/03/22 22:00 05/03/22 21:54 05/03/22 15:22 Temperature 97.5 F L 97.8 F Pulse Rate 95 Respiratory Rate 16 15 Blood Pressure 150/66 H 136/65 Pulse Oximetry 94 94 99 Oxygen Delivery Room Air Oxygen Flow Rate Intake/Output Intake/Output: Intake & Output 05/01/22 05/02/22 05/03/22 05/04/22 23:59 23:59 23:59 23:59 Intake Total 1999 999 Balance 1999 1000 Meds/Results Medications: Active Medications Generic Name Dose Route Start Last Admin Trade Name Freq PRN Reason Stop Dose Admin Enoxaparin Sodium 40 mg 05/04/22 09:00 Enoxaparin 40 Mg/0.4 Ml Syringe SUB-Q DAILY JESSICA Fluticasone/Umecli
[2022-05-04] MEDS: FLUTICASONE/UMECLIDIN/VILANTER 200-62.5-25 MCG ELLIPTA 1 PUFF INHALATION (08:54)
[2022-05-04] MEDS: ENOXAPARIN 40 MG/0.4 ML SYRINGE SUB-Q (09:29)
--- NOTE | 2022-05-04 13:06 | PM.IMPN ---
Progress Note: A&P Assessment and Plan (1) Acute pancreatitis: Code(s): K85.90 - Acute pancreatitis without necrosis or infection, unspecified Status: Acute Assessment and Plan: Likely idiopathic distant history of alcohol abuse ( no alcohol in >10 years) no gallstones noted on CT or RUQ U/S appreciate gastroenterology consultation continue with IV fluid rehydration clear liquid diet. Advance as tolerated per GI recommendations analgesics and antiemetics are available as needed lipase trending down. 1877 today (2) Chronic obstructive pulmonary disease: Code(s): J44.9 - Chronic obstructive pulmonary disease, unspecified Status: Acute Assessment and Plan: No acute issues. continue maintenance inhalers typically on 2 L supplemental oxygen during the day and 3 L at night O2 sats running in the upper 90s therefore he is currently on room air. Continue to monitor O2 sats closely (3) Hypertension: Code(s): I10 - Essential (primary) hypertension Status: Acute Assessment and Plan: Blood pressures reviewed and have been well controlled. Last BP 127/60 resume home losartan and amlodipine monitor BP trends (4) Polymyalgia rheumatica: Code(s): M35.3 - Polymyalgia rheumatica Status: Acute Assessment and Plan: No issues at this time Recently completed a short course of prednisone with improvement in symptoms. Subjective Date/time seen: 05/04/22 13:06 Interval history: date of service: 05/04/2022 Jin Constantino is a 76 old male with a history of COPD maintained on home oxygen, hypertension, non-Hodgkin's lymphoma, polymyalgia rheumatica who is seen in follow-up for acute pancreatitis. Is feeling much better today. He endorses 1/10 epigastric discomfort and states it is barely noticeable. He is able to tolerate clear liquids this morning. He had apple juice, Ensure, and Jell- O. He tolerated all of this well. Denies nausea or vomiting. No abdominal pain, cramping, or bloating. Denies fevers, chills, dizziness, lightheadedness. He does endorse feeling slightly weak, but believes this is due to not having any real food to eat over the past several days. He denies shortness of breath, wheezing, cough, chest pain, palpitations. He has been able to get up and walk to the bathroom without any difficulty. He denies dysuria, hematuria, urgency, or frequency. Review of Systems Review of Systems: All systems reviewed & are unremarkable except as noted in HPI and below Exam Narrative: General: well-nourished, well-appearing 76-year-old male, sitting up in bed, comfortable, NARD Neuro: awake, alert and oriented x4, speech clear, no focal neuro deficits noted HEENMT: normocephalic, atraumatic, EOMI, sclerae anicteric, moist oral mucosa Respiratory: clear to auscultation bilaterally, nonlabored breathing Cardio: regular rate, regular rhythm with S1-S2 Abdomen: nondistended, normoactive bowel sounds, soft, nontender to palpation Extremities: no edema, erythema, or tenderness to palpation, DP pulses 2+ bilaterally Skin: no rashes or lesions, warm and dry Psych: appropriate mood and affect, judgment and insight intact Objective Data Vital Signs Vital Signs: Vital Signs - 24 hr 05/03/22 14:00 05/03/22 20:40 05/03/22 22:00 Temperature 97.8 F 97.5 F L Pulse Rate 84 84 95 Respiratory Rate 15 15 16 Blood Pressure 136/65 150/66 H Pulse Oximetry 99 99 94 Oxygen Delivery Room Air 05/03/22 21:54 05/04/22 06:00 05/04/22 08:00 Temperature 96.3 F L Pulse Rate 79 Respiratory Rate 17 Blood Pressure 127/60 Pulse Oximetry 94 93 Oxygen Delivery Room Air Room Air 05/03/22 15:22 Temperature 97.8 F Pulse Rate Respiratory Rate 15 Blood Pressure 136/65 Pulse Oximetry 99 Oxygen Delivery Intake/Output Intake/Output: Intake & Output 05/01/22 05/02/22 05/03/22 05/04/22 23:59 23:59 23:59 23:
[2022-05-04 14:00] VITALS: BP 124/58; PULSE 69; RESP 15; TEMP 36.6; O2SAT 100
[2022-05-04] MEDS: SODIUM CHLORIDE 0.9% IV 1,000 ML 85 ML IV CONT (16:22)
[2022-05-04 20:35] VITALS: PULSE 69; RESP 16; O2SAT 98
[2022-05-04 22:00] VITALS: BP 112/61; PULSE 69; RESP 16; TEMP 35.9; O2SAT 98
[2022-05-05] MEDS: ACETAMINOPHEN 325 MG TABLET 650 MG PO (04:49)
[2022-05-05] MEDS: SODIUM CHLORIDE 0.9% IV 1,000 ML 85 ML IV CONT (04:52)
[2022-05-05 05:37] VITALS: BP 130/65; PULSE 75; RESP 18; TEMP 35.9; O2SAT 95
[2022-05-05 06:19] LABS: Hematocrit 35.6 % (42.0-52.0); Hemoglobin 11.7 g/dL (14.0-18.0); Mean Corpuscular HGB Conc 32.9 g/dl (32-36); Mean Corpuscular Hemoglobin 30.4 pg (26-34); Mean Corpuscular Volume 92.5 fl (80-100); Mean Platelet Volume 8.9 fl (7.4-10.4); Platelet Count Result 153 k/mm3 (150-375); Red Blood Count 3.85 M/mm3 (4.6-6.20); Red Cell Distribution Width 12.6 % (11.5-14.5); White Blood Count 5.7 K/mm3 (4.5-10.0)
[2022-05-05 06:32] LABS: Anion Gap 8 mmol/L (8-16); Blood Urea Nitrogen 9 mg/dL (9-20); Carbon Dioxide 25 mmol/L (22-30); Chloride 102 mmol/L (98-107); Estimated CRCL calculation 65 ml/min; Estimated Glomerular Filt Rate > 60; Glucose 97 mg/dL (65-110); Lipase 1564 U/L (23-300); Potassium 3.9 mmol/L (3.4-5.0); Sodium 135 mmol/L (137-145)
--- NOTE | 2022-05-05 07:49 | WPDGIPROGNO ---
Progress Note: A&P Assessment and Plan (1) Acute pancreatitis: Code(s): K85.90 - Acute pancreatitis without necrosis or infection, unspecified Status: Acute Assessment and Plan: Patient with apparent idiopathic pancreatitis. Improving clinically. Lipase 1564 today. Plan is to advance slowly to a low-fat diet. Will allow full liquid diet today. In advance as stated. Discharge when pain free. Outpatient lipase advised to ensure complete resolution. (2) Hx of non-Hodgkin's lymphoma: Code(s): Z85.72 - Personal history of non-Hodgkin lymphomas Status: Acute (3) Polymyalgia rheumatica: Code(s): M35.3 - Polymyalgia rheumatica Status: Acute Subjective Date/time seen: 05/05/22 07:49 Patient alert comfortable this morning. Ambulating in the room. States abdominal pain is lessened. Tolerated liquid diet without difficulty. Review of Systems Review of Systems: Review of systems noncontributory. Exam Narrative: Physical exam reveals patient to be alert. Vital signs stable. HEENT exam reveals no icterus. Lungs are clear. Heart without murmur. Abdomen bowel sounds present soft nontender with no organomegaly. Objective Data Vital Signs Vital Signs: Vital Signs - 24 hr 05/04/22 08:00 05/04/22 14:00 05/04/22 22:00 Temperature 97.9 F 96.7 F L Pulse Rate 69 69 Respiratory Rate 15 16 Blood Pressure 124/58 L 112/61 Pulse Oximetry 100 98 Oxygen Delivery Room Air 05/04/22 20:35 05/05/22 05:37 Temperature 96.6 F L Pulse Rate 69 75 Respiratory Rate 16 18 Blood Pressure 130/65 Pulse Oximetry 98 95 Oxygen Delivery Room Air Intake/Output Intake/Output: Intake & Output 05/02/22 05/03/22 05/04/22 05/05/22 23:59 23:59 23:59 23:59 Intake Total 1999 2980 1200 Balance 1999 2980 1200 Meds/Results Medications: Active Medications Generic Name Dose Route Start Last Admin Trade Name Freq PRN Reason Stop Dose Admin Acetaminophen 650 mg 05/04/22 13:21 05/05/22 04:49 Acetaminophen 325 Mg Tablet PO 650 mg Q4H PRN Administration pain 1-3 Amlodipine Besylate 5 mg 05/05/22 09:00 Amlodipine Besylate 5 Mg Tablet PO DAILY JESSICA Enoxaparin Sodium 40 mg 05/04/22 09:00 05/04/22 09:29 Enoxaparin 40 Mg/0.4 Ml Syringe SUB-Q 40 mg DAILY JESSICA Administration Fluticasone/Umeclidinium/Vilanterol 1 puff 05/04/22 08:00 05/04/22 08:54 Fluticasone/Umeclidin/Vilanter 200-62.5-25 Mcg Ellipta INHALATION 1 puff DAILYRT JESSICA Administration Hydromorphone HCl 0.5 mg 05/03/22 10:07 05/04/22 04:04 Hydromorphone Hcl Inj (*Crx) 1 Mg/Ml Syr IV PUSH 0.5 mg Q4H PRN Administration Pain Rated 7-10 Sodium Chloride 1,000 mls @ 85 mls/hr 05/03/22 10:10 05/05/22 04:52 Normal Saline Iv IV CONT 85 mls/hr .[id number] JESSICA Administration Losartan Potassium 100 mg 05/05/22 09:00 Losartan Potassium 100 Mg Tablet PO DAILY JESSICA Ondansetron HCl 4 mg 05/03/22 10:07 05/03/22 18:17 Ondansetron Inj 4 Mg/2 Ml Vial IV PUSH 4 mg Q4H PRN Administration Nausea Vitamin D 5,000 units 05/05/22 09:00 Cholecalciferol 1,000 Units Tablet PO DAILY [facility] Radiology Results: ITS Impressions Chest X-Ray 05/03/22 08:21 IMPRESSION: 1. Minimal right basilar airspace opacity, likely atelectasis versus pneumonia Chest/Abdomen/Pelvis CTA 05/03/22 08:52 IMPRESSION: 1. Acute interstitial pancreatitis. 2. Moderate emphysema. 3. Right inguinal hernia containing nonobstructed small bowel. 4. Left inguinal hernia containing fat. Abdomen Ultrasound 05/03/22 17:16 IMPRESSION: Poor visualization of the pancreas. Echogenic liver, most commonly due to steatosis but also can be seen with hepatitis and fibrosis. No gallstones detected. Labs Labs: Laboratory Results - last 24 hr 05/05/22 05/05/22 06:00 06:00 WBC 5.7 RBC 3.85 L Hgb 11.7 L Hct 35.6 L MCV 92.5 MCH 30
[2022-05-05 08:00] VITALS: PULSE 75; RESP 18; O2SAT 95
[2022-05-05] MEDS: FLUTICASONE/UMECLIDIN/VILANTER 200-62.5-25 MCG ELLIPTA 1 PUFF INHALATION (08:35)
[2022-05-05] MEDS: CHOLECALCIFEROL 1,000 UNITS TABLET 5000 UNITS PO (09:19)
[2022-05-05] MEDS: ENOXAPARIN 40 MG/0.4 ML SYRINGE SUB-Q (09:20)
[2022-05-05] MEDS: LOSARTAN POTASSIUM 100 MG TABLET PO (09:20)
[2022-05-05] MEDS: amLODIPine BESYLATE 5 MG TABLET PO (09:20)
[2022-05-05 12:58] VITALS: BMI 26.4
[2022-05-05 14:00] VITALS: BP 114/62; PULSE 69; RESP 14; TEMP 36.5; O2SAT 96
--- NOTE | 2022-05-05 15:34 | PM.DS ---
DS: Admitting Diagnosis Discharge Date 05/05/2022 Admitting Diagnosis acute pancreatitis DS: Discharge Diagnosis Discharge Diagnosis (1) Acute pancreatitis: Code(s): K85.90 - Acute pancreatitis without necrosis or infection, unspecified Status: Acute Assessment and Plan: Likely idiopathic distant history of alcohol abuse ( no alcohol in >10 years) no gallstones noted on CT or RUQ U/S Seen in consultation by Gastroenterology Patient was adequately rehydrated with IV fluids Diet was slowly advanced and he was eventually able to tolerate a low-fat diet which he will continue Lipase with overall improvement. Her GI recommendations, he will obtain an outpatient lipase within 1 week to ensure complete resolution (2) Chronic obstructive pulmonary disease: Code(s): J44.9 - Chronic obstructive pulmonary disease, unspecified Status: Acute Assessment and Plan: No acute issues. continue maintenance inhalers typically on 2 L supplemental oxygen during the day and 3 L at night (3) Hypertension: Code(s): I10 - Essential (primary) hypertension Status: Acute Assessment and Plan: Blood pressures reviewed and were well controlled. Continue home losartan and amlodipine (4) Polymyalgia rheumatica: Code(s): M35.3 - Polymyalgia rheumatica Status: Acute Assessment and Plan: No issues at this time Recently completed a short course of prednisone with improvement in symptoms. DS: Summary Hospital Course Hospital Course: date of admission: 05/03/2022 date of discharge: 05/05/2022 Jin Constantino is a 76 old male with a history of COPD maintained on home oxygen, hypertension, non-Hodgkin's lymphoma, polymyalgia rheumatica? who presented to the emergency department on 05/03/2022 with complaints of epigastric pain worsened over the past 3 days with associated nausea. On presentation to the ED, his BP was elevated, he was mildly tachycardic, additional vital signs were stable, WBC 11.3, lipase 3200, additional laboratory workup unremarkable, CT of the abdomen/ pelvis showed acute interstitial pancreatitis. He was admitted to the hospitalist service for further evaluation management was seen in consultation by Gastroenterology. Please see above for further details. Patient had clinical improvement following bowel rest and IV rehydration. Following symptomatic improvement, his diet was slowly advanced and he was eventually able to tolerate a low-fat diet. His lipase improved and he was feeling back to his usual state of health. Given his overall improvement, he was determined to no longer require inpatient care and was discharged in hemodynamically stable condition on 05/05/2022. He will obtain outpatient lipase in order to assess for complete resolution per GI recommendations. I discussed with the patient worrisome signs and symptoms for which to return and he was educated on his medications. He is aware of need for low-fat diet. He will follow-up with his primary care provider in 1-2 weeks. Status at Discharge Functional status at discharge: independent ambulation Overall status at discharge: patient is progressing back to baseline Time Spent with Patient Time attestation: Total time spent providing and/or coordinating discharge services: 39 minutes Time spent: Greater than 30 minutes Exam Narrative: General: well-nourished, well-appearing 76-year-old male, sitting up in bed, comfortable, NARD Neuro: awake, alert and oriented x4, speech clear, no focal neuro deficits noted HEENMT: normocephalic, atraumatic, EOMI, sclerae anicteric, moist oral mucosa Respiratory: clear to auscultation bilaterally, nonlabored breathing Cardio: regular rate, regular rhythm with S1-S2 Abdomen: nondistended, normoactive bowel sounds, soft, nontender to palpation Extremities: no edema, erythema, or tenderness to palpation, DP pulses 2+ bilaterally Skin: n
== END 2022-05-05 17:10 | disposition home or self-care (01) | DRG 439 ==
LOC: ANHED 10:06 → ANH3MEDSUR 10:37
PROVIDERS: Physician Assistant; Admitting Provider Internal Medicine; Emergency Provider Emergency Medicine; PCP Physician Assistant; Visit Provider Physician Assistant
DX: K85.00 Idiopathic acute pancreatitis without necrosis or infection (principal); C85.90 Non-Hodgkin lymphoma, unspecified, unspecified site; J44.9 Chronic obstructive pulmonary disease, unspecified; I10 Essential (primary) hypertension; M35.3 Polymyalgia rheumatica; R97.20 Elevated prostate specific antigen [PSA]; Z99.81 Dependence on supplemental oxygen; Z87.891 Personal history of nicotine dependence
CPT/HCPCS: 36415; 71046; 71275; 74177; 76705; 80048; 80053; 83690; 83735; 83880; 84478; 84484; 85025; 85027; 85380; 85610; 85730; 93005; 94640; 96374; 96375; 99285; A9270; J1170; J1650; J2270; J2405; J7030; Q9967

== ENCOUNTER 2022-08-15 13:22 | Outpatient (CLI) | payer MEDICARE, SELFPAY ==
--- NOTE | ~2022-08-15 | CT_ITS ---
CT Scan of the Chest without Contrast: Clinical Indication: COPD, follow-up prior abnormal chest CT Technique: Contiguous sections were acquired throughout the chest without intravenous contrast. Dose reduction technique was used on this scan by utilizing automated exposure control and iterative recon struction technique. The dose-length product (DLP) was 316.17 mGy-cm. COMPARISON: 05/03/2022 Findings: There is no evidence of any significant mediastinal, hilar or axillary lymphadenopathy. Coronary autumn ry calcifications are present. No aortic aneurysm. There is no evidence of pleural or pericardial effusion. The lungs are clear. No pulmonary nodules or infiltrates are noted. Mild to moderate emphysema noted. Images through the upper abdomen reveal relatively atrophic left kidney. Impression: [id number] emphysema, stable from prior exam. Reviewed, dictated and finalized at location [] [employer] Impression: [id number] emphysema, stable from prior exam.
== END 2022-08-15 13:23 | disposition home or self-care (01) ==
LOC: ANHIMG 13:26
PROVIDERS: PCP Physician Assistant; Visit Provider Nurse Practitioner
DX: R91.8 Other nonspecific abnormal finding of lung field (principal); J43.9 Emphysema, unspecified
CPT/HCPCS: 71250

== ENCOUNTER 2022-09-29 12:22 | Outpatient (CLI) | payer MEDICARE, SELFPAY ==
--- NOTE | 2022-09-30 12:51 | WPDSIXMINUTE ---
Six Minute Walk Procedure Procedure Performed Pulmonary Stress Test (6 min walk) Six Minute Walk Six Minute Walk: This 6 minute walk test was carried out with the patient breathing ambient air. The baseline pre-walk oxyhemoglobin saturation was 98%. The patient walked 305 m with no stops during testing. During the walk oxyhemoglobin saturation remained in the range of 96% to 98%. Impression: No evidence of oxyhemoglobin desaturation on this testing.
== END 2022-09-29 12:23 | disposition home or self-care (01) ==
LOC: ANHPFT 12:22
PROVIDERS: PCP Physician Assistant; Visit Provider Nurse Practitioner
DX: J44.9 Chronic obstructive pulmonary disease, unspecified (principal)
CPT/HCPCS: 94618

== ENCOUNTER 2022-12-07 09:37 | Outpatient (CLI) | payer MEDICARE, SELFPAY ==
[2022-12-07 10:06] LABS: Basophils Absolute Auto 0.1 K/mm3 (0.0-0.1); Basophils Percent Auto 0.6 % (0.2-1.2); Eosinophils Absolute Auto 0.3 K/mm3 (0-0.3); Eosinophils Percent Auto 3.1 % (0-4.4); Hematocrit 44.4 % (42.0-52.0); Hemoglobin 14.2 g/dL (14.0-18.0); Immature Granulocyte Absolute 0.04 K/mm3 (0.00-0.031); Immature Granulocyte Percent A 0.5 % (0-0.5); Lymphocytes Absolute Auto 2.36 K/mm3 (0.9-3.2); Lymphocytes Percent Auto 28.9 % (18.3-44.2); Mean Corpuscular Hemoglobin 30.3 pg (26-34); Mean Corpuscular Volume 94.7 fl (80-100); Mean Platelet Volume 8.6 fl (7.4-10.4); Monocytes Absolute Auto 0.6 K/mm3 (0.1-0.6); Monocytes Percent Auto 7.7 % (2.6-8.5); Neutrophils Absolute Auto 4.8 K/mm3 (1.3-6.7); Neutrophils Percent Auto 59.2 % (45.5-73.1); Platelet Count Result 194 k/mm3 (150-375); Red Blood Count 4.69 M/mm3 (4.6-6.20); Red Cell Distribution Width 12.6 % (11.5-14.5); White Blood Count 8.2 K/mm3 (4.5-10.0)
[2022-12-07 10:11] LABS: Blood Urea Nitrogen 19 mg/dL (8-26); Carbon Dioxide 33 mmol/L (22-30); Chloride 103 mmol/L (98-109); Estimated Glomerular Filt Rate > 60; Glucose 96 mg/dL (70-105); Ionized Calcium (POC) 1.26 mmol/L (1.11-1.31); Potassium 4.6 mmol/L (3.5-4.9); Sodium 142 mmol/L (138-146)
[2022-12-07 12:05] LABS: Alanine Aminotransferase 28 U/L (6-50); Albumin Level 4.5 g/dL (3.5-5.1); Alkaline Phosphatase 82 U/L (38-126); Anion Gap 3 mmol/L (8-16); Aspartate Amino Transferase 27 U/L (17-59); Bilirubin,Total 0.8 mg/dL (0.2-1.3); Blood Urea Nitrogen 19 mg/dL (9-20); Calcium 9.3 mg/dL (8.4-10.2); Carbon Dioxide 32 mmol/L (22-30); Chloride 105 mmol/L (98-107); Estimated Glomerular Filt Rate > 60; Glucose 96 mg/dL (65-110); Potassium 4.7 mmol/L (3.4-5.0); Sodium 140 mmol/L (137-145)
== END 2022-12-07 09:38 | disposition home or self-care (01) ==
LOC: ANHLAB 09:40
PROVIDERS: PCP Physician Assistant; Visit Provider Internal Medicine Hematology & Oncology
DX: C85.80 Other specified types of non-Hodgkin lymphoma, unspecified site (principal)
CPT/HCPCS: 36415; 80047; 80053; 85025

== ENCOUNTER 2023-07-15 18:36 | Emergency (ER) | payer MEDICARE, SELFPAY ==
[2023-07-15] VITALS (12 sets, daily range): BP systolic 155–205; BP diastolic 68–84; PULSE 78–96; RESP 16–20; TEMP 36.4; O2SAT 92–98
--- NOTE | ~2023-07-15 | CT_ITS ---
EXAMINATION: CT abdomen pelvis w con DATE: 07/15/2023 19:30 INDICATION: lower abd pain, nausea, hx divertic TECHNIQUE: Computed tomography (CT) of the abdomen and pelvis was performed with 100 mL Omnipaque-350 intravenous contrast. Automated exposure control and iterative reconstruction technique were employe d. The dose-length product was 668.81 mGy-cm. COMPARISON: 05/03/2022. FINDINGS: Lower thorax: Emphysematous change Liver: Normal. Biliary/Gallbladder: Gallbladder is normal. No bile duct dilation. Pancreas: No mass or duct dilation. Spleen: Normal. Adrenals:No mass. Kidneys: Left upper pole scarring. Left pelviectasis, caliectasis, and urothelial enhancement in the upper pole. Mild left hydronephrosis and inflammatory change. No suspicious mass. No right hydronephr osis. GI tract: No small or large bowel dilation. Normal appendix. Diverticulosis without diverticulitis. 5 Mesentery/Peritoneum: No ascites, mass, or free air. Retroperitoneum: No mass. Pelvis: Pelvic organs are within normal limits. Soft Tissues: Soft tissues and body wall unremarkable. Bones: No acute osseous finding. IMPRESSION: Left pyelitis. No CT evidence of diverticulitis. Reviewed, dictated and finalized at location K. IFIED MASSAGE THERAPIST
--- NOTE | 2023-07-15 18:52 | ED.ABDPAIN ---
HPI - Abdominal Pain General Chief Complaint: Abdominal Pain Stated Complaint: abdominal pain Time Seen by Provider: 07/15/23 18:43 Source: patient Mode of arrival: ambulatory Limitations: no limitations History of Present Illness HPI narrative: Patient is a 78-year-old male who presents to the ED with report of lower abdominal pain. Patient reports the pain began around 2:00 p.m. today. It has been intermittent but progressively worsening since then. He tried taking an old pain pill earlier today but denied improvement. Reports nausea, denies vomiting. Denies fevers. He did think he may be constipated today and had a small bowel movement this morning which did not change the pain. He last had a bowel movement yesterday which was normal. Denies rectal bleeding. Denies urinary complaints. He does note history of diverticulitis. Related Data Home Medications Medication Instructions Recorded Confirmed albuterol sulfate 2 puff inhalation PRN PRN Dyspnea 05/03/22 05/03/22 amlodipine 5 mg tablet 5 mg PO DAILY 05/03/22 05/03/22 amoxicillin 875 mg-potassium 1 tablet PO BID 05/03/22 05/03/22 clavulanate 125 mg tablet cholecalciferol (vitamin D3) 125 125 mcg PO DAILY 05/03/22 05/03/22 mcg (5,000 unit) tablet (Vitamin D3) fluticasone fur. 200 mcg-umeclid 1 inh inhalation DAILY 05/03/22 05/03/22 62.5 mcg-vilant 25 mcg inhalat.powder (Trelegy Ellipta) losartan 100 mg tablet 100 mg PO DAILY 05/03/22 05/03/22 Allergies Allergy/AdvReac Type Severity Reaction Status Date / Time No Known Allergies Allergy Verified 07/15/23 18:45 Review of Systems Review of Systems: CONSTITUTIONAL: Denies fever, chills, or sweats. CARDIOVASCULAR: Denies chest pain. RESPIRATORY: Denies cough or dyspnea. GASTROINTESTINAL: See HPI. GENITOURINARY: Denies dysuria or hematuria. SKIN: Denies rash or itching. MUSCULOSKELETAL: Denies back pain, joint pain, or myalgia. All systems reviewed & are unremarkable except as noted in HPI and below PMFSH Past Medical History Medical History Chronic obstructive pulmonary disease Diverticulitis Elevated PSA Hypertension Non Hodgkin's lymphoma Polymyalgia rheumatica Rupture of left biceps tendon Surgical History Surgical History History of colonoscopy (01/2011) Per Dr. Sohan Escobedo. Diverticulosis and internal hemorrhoids. History of mandibular surgery (1964) Repair of broken jaw. History of orthopedic surgery Repair of left bicep tendon rupture. Family History Family History Father Acute myocardial infarction Sibling Hypertension Son Leukemia Sibling Breast cancer Social History Social History Social History: Surrogate medical decision maker: Bianca Constantino, spouse. Code status: Full code. Smoking status: Former smoker Tobacco type: cigarettes Second hand tobacco smoke exposure: No Alcohol intake: former Substance use: never Additional living arrangements comments: The patient lives with his in [place]. Additional occupation/education comments: Retired. Spiritual care concerns: No Exam Narrative: GENERAL: Mildly uncomfortable appearing, well-nourished, non-toxic, in no acute distress. HEAD: Normocephalic, atraumatic. NECK: Supple. No adenopathy, no masses. RESPIRATORY: Airway patent, respirations nonlabored. Clear to auscultation bilaterally, no rales, rhonchi, wheezing. CARDIOVASCULAR: Regular rate and rhythm without murmurs, rubs, or gallops. Radial pulses 2+ and equal bilaterally. ABDOMINAL: Soft, diffuse tenderness throughout lower abdomen, no rebound. Nondistended. Mildly hypoactive BS. MUSCULOSKELETAL: Moves all extremities. No gross deformities. SKIN: Warm, dry, normal
[2023-07-15 18:55] LABS: Basophils Percent Auto 0.4 % (0.2-1.2); Eosinophils Absolute Auto 0.1 K/mm3 (0-0.3); Eosinophils Percent Auto 1.4 % (0-4.4); Hematocrit 45.2 % (42.0-52.0); Hemoglobin 14.8 g/dL (14.0-18.0); Immature Granulocyte Absolute 0.05 K/mm3 (0.00-0.031); Immature Granulocyte Percent A 0.6 % (0-0.5); Lymphocytes Absolute Auto 1.35 K/mm3 (0.9-3.2); Lymphocytes Percent Auto 17.2 % (18.3-44.2); Mean Corpuscular HGB Conc 32.7 g/dl (32-36); Mean Corpuscular Hemoglobin 31.1 pg (26-34); Mean Platelet Volume 8.6 fl (7.4-10.4); Monocytes Absolute Auto 0.5 K/mm3 (0.1-0.6); Monocytes Percent Auto 5.7 % (2.6-8.5); Neutrophils Absolute Auto 5.9 K/mm3 (1.3-6.7); Neutrophils Percent Auto 74.7 % (45.5-73.1); Platelet Count Result 159 k/mm3 (150-375); Red Blood Count 4.76 M/mm3 (4.6-6.20); White Blood Count 7.9 K/mm3 (4.5-10.0)
[2023-07-15] MEDS: ONDANSETRON INJ 4 MG/2 ML VIAL IV PUSH (19:03)
[2023-07-15] MEDS: MORPHINE SULFATE (*CRX) 4 MG/ML INJ IV PUSH ×2 (19:04→19:47)
[2023-07-15 19:05] LABS: Alanine Aminotransferase 30 U/L (6-50); Albumin Level 4.7 g/dL (3.5-5.1); Alkaline Phosphatase 90 U/L (38-126); Anion Gap 8 mmol/L (8-16); Aspartate Amino Transferase 35 U/L (17-59); Bilirubin,Total 0.6 mg/dL (0.2-1.3); Blood Urea Nitrogen 21 mg/dL (9-20); Calcium 9.2 mg/dL (8.4-10.2); Carbon Dioxide 29 mmol/L (22-30); Chloride 100 mmol/L (98-107); Estimated CRCL calculation 45 ml/min; Estimated Glomerular Filt Rate > 60; Glucose 131 mg/dL (65-110); Lipase 86 U/L (23-300); Potassium 4.5 mmol/L (3.4-5.0); Sodium 137 mmol/L (137-145)
--- NOTE | 2023-07-15 19:24 | PC.NURSE ---
Report received from YONIS Gillis. Assumed care of patient at this time. Patient is in CT.
[2023-07-15 19:35] LABS: Lactic Acid Reflex 1.2 mmol/L (0.7-2.0)
[2023-07-15 20:03] LABS: Appearance Urine Clear (Clear); Bacteria Urine None Seen /hpf; Bilirubin Urine Negative (Negative); Blood Urine 3+ (Negative); Color Urine Yellow (Yellow); Glucose Urine UA Negative (Negative); Ketones Urine 1+ mg/dL (Negative); Leukocyte Esterase Ur Negative LEU/UL (Negative); Nitrate Urine Negative (Negative); Non Pathogenic Casts 0-2; Protein Urine Trace mg/dL (Negative); RBC Urine 51-100 /hpf (0-2); Squamous Epithelial Cell Urine None seen /hpf (Few); Urobilinogen Urine 0.2 mg/dL (<2.0); WBC Urine 0-5 /hpf; pH Urine 6.5 (5.0-9.0)
[2023-07-15 20:17] LABS: Specific Grav Ur 1.041 (1.001-1.035)
[2023-07-15 20:18] LABS: Add Urine Microscopic? YES
[2023-07-15] MEDS: SODIUM CHLORIDE 0.9% IV 1,000 ML 999 ML IV CONT (20:27)
[2023-07-15] MEDS: HYDROcodone/acetaminophen (*CRX) 5-325 MG TABLET 1 TAB PO (21:27)
== END 2023-07-15 22:01 | disposition home or self-care (01) ==
PROVIDERS: Emergency Provider Physician Assistant; PCP Physician Assistant
DX: N10 Acute pyelonephritis (principal); J44.9 Chronic obstructive pulmonary disease, unspecified; I10 Essential (primary) hypertension; M35.3 Polymyalgia rheumatica; Z85.72 Personal history of non-Hodgkin lymphomas; Z87.891 Personal history of nicotine dependence
CPT/HCPCS: 36415; 74177; 80053; 81001; 83605; 83690; 85025; 96361; 96365; 96375; 96376; 99284; A9270; J0696; J2270; J2405; J7030; Q9967

== ENCOUNTER 2023-12-06 09:19 | Outpatient (CLI) | payer MEDICARE, SELFPAY ==
[2023-12-06 09:31] LABS: Basophils Percent Auto 0.5 % (0.2-1.2); Eosinophils Absolute Auto 0.2 K/mm3 (0-0.3); Eosinophils Percent Auto 2.1 % (0-4.4); Hematocrit 45.3 % (42.0-52.0); Hemoglobin 14.6 g/dL (14.0-18.0); Immature Granulocyte Absolute 0.04 K/mm3 (0.00-0.031); Immature Granulocyte Percent A 0.5 % (0-0.5); Lymphocytes Absolute Auto 1.72 K/mm3 (0.9-3.2); Lymphocytes Percent Auto 20.9 % (18.3-44.2); Mean Corpuscular HGB Conc 32.2 g/dl (32-36); Mean Corpuscular Hemoglobin 30.4 pg (26-34); Mean Corpuscular Volume 94.2 fl (80-100); Mean Platelet Volume 8.7 fl (7.4-10.4); Monocytes Absolute Auto 0.7 K/mm3 (0.1-0.6); Monocytes Percent Auto 8.5 % (2.6-8.5); Neutrophils Absolute Auto 5.6 K/mm3 (1.3-6.7); Neutrophils Percent Auto 67.5 % (45.5-73.1); Platelet Count Result 205 k/mm3 (150-375); Red Blood Count 4.81 M/mm3 (4.6-6.20); Red Cell Distribution Width 12.5 % (11.5-14.5); White Blood Count 8.2 K/mm3 (4.5-10.0)
[2023-12-06 09:41] LABS: Blood Urea Nitrogen 19 mg/dL (8-26); Carbon Dioxide 30 mmol/L (22-30); Chloride 101 mmol/L (98-109); Estimated Glomerular Filt Rate 58; Glucose 81 mg/dL (70-105); Ionized Calcium (POC) 1.25 mmol/L (1.11-1.31); Potassium 4.4 mmol/L (3.5-4.9); Sodium 141 mmol/L (138-146)
[2023-12-06 12:53] LABS: Alanine Aminotransferase 20 U/L (6-50); Albumin Level 4.3 g/dL (3.5-5.1); Alkaline Phosphatase 74 U/L (38-126); Anion Gap 2 mmol/L (4-12); Aspartate Amino Transferase 24 U/L (17-59); Bilirubin,Total 0.9 mg/dL (0.2-1.3); Blood Urea Nitrogen 19 mg/dL (9-20); Calcium 9.6 mg/dL (8.4-10.2); Carbon Dioxide 33 mmol/L (22-30); Chloride 103 mmol/L (98-107); Estimated Glomerular Filt Rate > 60; Glucose 84 mg/dL (65-110); Potassium 4.4 mmol/L (3.4-5.0); Sodium 138 mmol/L (137-145)
== END 2023-12-06 09:20 | disposition home or self-care (01) ==
LOC: ANHLAB 09:22
PROVIDERS: PCP Physician Assistant; Visit Provider Internal Medicine Hematology & Oncology
DX: C85.80 Other specified types of non-Hodgkin lymphoma, unspecified site (principal)
CPT/HCPCS: 36415; 80047; 80053; 85025

== ENCOUNTER 2024-07-25 02:02 | Emergency (ER) | payer MEDICARE, SELFPAY ==
[2024-07-25] VITALS (14 sets, daily range): BP systolic 112–144; BP diastolic 59–73; PULSE 54–63; RESP 12–16; TEMP 37.1; O2SAT 90–100
--- NOTE | ~2024-07-25 | CT_ITS ---
CT of the Abdomen and Pelvis: Indication: Abdominal pain Technique: 2.5 mm axial scans were obtained through the abdomen and pelvis following intravenous adm inistration of 100 cc of Omnipaque 350. Dose reduction technique was used on this scan by utilizing a utomated exposure control and iterative reconstruction technique. The dose-length product (DLP) was 5 95.61 mGy-cm. COMPARISON: 07/15/2023 Findings: Scans through the lung bases demonstrate mild emphysematous change. The liver, spleen, pancreas, gallbladder, adrenals and right kidney are within normal limits. There i s relatively atrophic change of the upper pole the left kidney, with possible developing mass. There are atherosclerotic calcifications of the aorta. No lymphadenopathy. No bowel obstruction or bowel wall thickening. There is sigmoid diverticulosis. Images through the pelvis were performed. Urinary bladder unremarkable. No pelvic mass seen. Small ri ght inguinal hernia contains a focal loop of small bowel. Impression: Possible developing left upper pole renal mass with underlying atrophic changes of the renal pole. Pr e and postcontrast MR or CT urogram recommended to further assess for possible solid mass. Small right inguinal hernia contains a focal small bowel. No bowel obstruction or bowel wall thickeni ng. Reviewed, dictated and finalized at location . GORY DEVELOPMENT MANAGER Impression: Possible developing left upper pole renal mass with underlying atrophic changes of the renal pole. Pre and postcontrast MR or CT urogram recommended to furthe r assess for possible solid mass. Small right inguinal hernia contains a focal small bowel. No bowel obstruction or bowel wall thickening.
[2024-07-25 02:27] LABS: Basophils Percent Auto 0.4 % (0.2-1.2); Eosinophils Absolute Auto 0.3 K/mm3 (0-0.3); Eosinophils Percent Auto 2.6 % (0-4.4); Hematocrit 43.7 % (42.0-52.0); Hemoglobin 14.7 g/dL (14.0-18.0); Immature Granulocyte Absolute 0.05 K/mm3 (0.00-0.031); Immature Granulocyte Percent A 0.5 % (0-0.5); Lymphocytes Absolute Auto 2.47 K/mm3 (0.9-3.2); Lymphocytes Percent Auto 25.4 % (18.3-44.2); Mean Corpuscular HGB Conc 33.6 g/dl (32-36); Mean Corpuscular Hemoglobin 31.3 pg (26-34); Monocytes Absolute Auto 0.9 K/mm3 (0.1-0.6); Monocytes Percent Auto 8.9 % (2.6-8.5); Neutrophils Percent Auto 62.2 % (45.5-73.1); Platelet Count Result 193 k/mm3 (150-375); Red Cell Distribution Width 12.3 % (11.5-14.5); White Blood Count 9.7 K/mm3 (4.5-10.0)
[2024-07-25 02:40] LABS: Alanine Aminotransferase 18 U/L (6-50); Albumin Level 4.5 g/dL (3.5-5.1); Alkaline Phosphatase 95 U/L (38-126); Anion Gap 7 mmol/L (4-12); Aspartate Amino Transferase 25 U/L (17-59); Bilirubin,Total 0.7 mg/dL (0.2-1.3); Blood Urea Nitrogen 22 mg/dL (9-20); Calcium 9.2 mg/dL (8.4-10.2); Carbon Dioxide 27 mmol/L (22-30); Chloride 101 mmol/L (98-107); Estimated CRCL calculation 41 ml/min; Estimated Glomerular Filt Rate 58; Glucose 119 mg/dL (65-110); Lipase 122 U/L (23-300); Potassium 4.4 mmol/L (3.4-5.0); Sodium 135 mmol/L (137-145)
[2024-07-25] MEDS: MORPHINE SULFATE (*CRX) 2 MG/ML INJ IV PUSH ×2 (03:04→07:02)
[2024-07-25] MEDS: KETOROLAC 15 MG/ML VIAL (*BKC) IV PUSH (03:04)
[2024-07-25] MEDS: ONDANSETRON INJ 4 MG/2 ML VIAL IV PUSH (03:04)
[2024-07-25] MEDS: SODIUM CHLORIDE 0.9% IV 1,000 ML 999 ML IV CONT (04:59)
--- NOTE | 2024-07-25 06:03 | ED_ITS ---
HPI - Abdominal Pain General Chief Complaint: Abdominal Pain Stated Complaint: bad pain Time Seen by Provider: 07/25/24 02:07 History of Present Illness HPI narrative: Patient is an 79-year-old male who presents to the emergency department this morning complaining of lower abdominal pain. Patient states that pain started around 1130 p.m. and persisted. Patient admits that he noticed some hematuria approximately 24 hours ago. He admits that he does get intermittent hematuria. Patient does have a history of BPH which he follows up with his urologist, Dr. Evangelista. Patient states that he was seen our facility 1-2 years ago for similar symptoms and per chart review patient was seen for acute appendicitis and similar symptoms to today and at that time he was diagnosed with pyelitis. Patient denies any nausea or vomiting, any dysuria, and denies any additional symptoms or concerns at this time. Related Data Home Medications Medication Instructions Recorded Confirmed albuterol sulfate 2 puff inhalation PRN PRN Dyspnea 05/03/22 12/29/23 amlodipine 5 mg tablet 5 mg PO DAILY 05/03/22 12/29/23 cholecalciferol (vitamin D3) 125 125 mcg PO DAILY 05/03/22 12/29/23 mcg (5,000 unit) tablet (Vitamin D3) fluticasone fur. 200 mcg-umeclid 1 inh inhalation DAILY 05/03/22 12/29/23 62.5 mcg-vilant 25 mcg inhalat.powder (Trelegy Ellipta) losartan 100 mg tablet 100 mg PO DAILY 05/03/22 12/29/23 Allergies Allergy/AdvReac Type Severity Reaction Status Date / Time No Known Allergies Allergy Verified 12/29/23 10:48 Review of Systems Review of Systems: All systems are reviewed and are negative unless stated otherwise in the HPI. [facility] Past Medical History Medical History Chronic obstructive pulmonary disease Diverticulitis Elevated PSA Hypertension Non Hodgkin's lymphoma Polymyalgia rheumatica Rupture of left biceps tendon Surgical History Surgical History History of colonoscopy (01/2011) Per Dr. Sohan Escobedo. Diverticulosis and internal hemorrhoids. History of mandibular surgery (1963) Repair of broken jaw. History of orthopedic surgery Repair of left bicep tendon rupture. Family History Family History Father Acute myocardial infarction Sibling Hypertension Son Leukemia Sibling Breast cancer Social History Social History Social History: Surrogate medical decision maker: Bianca Constantino, spouse. Code status: Full code. Smoking packs per day: 1 Smoking cigarettes per day: 20.0 Years smoked: 53 Smoking pack-years: 53.00 Smoking status: Former smoker Tobacco type: cigarettes Second hand tobacco smoke exposure: No Additional smoking assessment comments: down to 1/2 pack when he quit Alcohol intake: former Substance use: never Additional living arrangements comments: The patient lives with his in [place]. Additional occupation/education comments: Retired. Spiritual care concerns: No Exam Narrative: General: Alert, awake, afebrile, in no acute distress. HEENT: PERRL, no rhinorrhea, no post nasal drip, oropharynx clear. Neck: Trachea midline, no JVD, no lymphadenopathy. Cardiovascular: Regular rate and rhythm, no murmurs, rubs or gallops, no peripheral edema. Respiratory: Clear to auscultation bilaterally, no tachypnea, no wheezing, no rhonchi, no rubs, no respiratory distress. Abdomen: Soft, mild tenderness to palpation over the suprapubic region, nondistended, no rebound, no guarding, no peritoneal signs. Musculoskeletal: No joint swelling or deformity, normal muscle tone. Skin: No rashes or petechia, no signs of infection. Psychiatric: Alert and oriented, normal behavior and judgment for situation. Neurological: Alert and oriented to person, place, and time. Follows all commands. No focal deficits, speech is clear and fluent. Course Vital Signs Vital signs: Vital Signs Temperature 98.8 F 07/25/24 02:05 Pulse Rate 61 07/25/24 02:05 Respiratory Rate 14 07/25/24 02:05 Blood Pressure 144/71 H 07/25/24 02:05 Pulse Oximetry 100 07/25/24 02:05 Oxygen Delivery Room Air 07/25/24 02:05 Temperature 98.8 F 07/25/24 02:05 Pulse Rate 60 07/25/24 05:01 Respiratory Rate 16 07/25/24 04:46 Blood Pressure 136/69 07/25/24 05:01 Pulse Oximetry 90 07/25/24 05:01 Oxygen Delivery Room Air 07/25/24 02:05 MDM - Abdominal Pain MDM Narrative Medical decision making narrative: The patient was evaluated by myself in the emergency department. History is obtained from patient who is an independent historian and physical exam was performed. External medical records were reviewed at this time. IV was estab lished and pertinent tests were ordered. Patient was administered 1 L IV fluid bolus with normal saline, 2 mg IV morphine, 4 mg of IV Zofran and 15 mg of IV Toradol for pain. Laboratory results obtained revealing no acute process. Urinalysis revealed urinary tract infection with hematuria. Patient was administered 1 g of IV Rocephin at this time. Imaging studies obtained included CT abdomen and pelvis with IV contrast which was independently interpreted by me revealing dilation of multiple left upper pole calyces with prominent left renal pelvis finding may relate to infection. Patient was informed of these findings at bedside and reassessed, patient states that he feels great, denies any pain at this time. Patient was informed that he will be placed on an oral antibiotic to take for the next week and to follow-up with his urologist and patient is agreeable with this plan. Differential diagnosis considerations include renal colic, pyelonephritis, urinary tract infection/cystitis. Comorbidities impacting this visit include history of BPH and intermittent hematuria. I have evaluated and discussed social determinants of health with the patient that could potentially impact subsequent diagnosis and treatment plans. On repeat assessment of the patient, reevaluation revealed that the patient is doing well and is in no acute distress. Patient symptoms have improved since he arrived to our emergency department. Repeat vital signs were all reviewed and noted to be stable. Differential diagnosis and treatment plan were discussed with the patient at bedside. Patient agrees with discussion and after shared medical decision making agrees with discharge. All questions were answered to the patient's satisfaction. Patient will follow up with his Urologist in 3-5 days. A script for cephalexin was sent to patient's pharmacy to take as prescribed. Patient was provided with strict return precautions and instructed to return to the emergency department if any new or worsening symptoms develop. The patient was discharged in stable condition. Lab Data 07/25/24 02:20 07/25/24 02:20 Labs: Lab Results 07/25/24 07/25/24 Range/Units 02:20 05:39 WBC 9.7 (4.5-10.0) K/mm3 RBC 4.70 (4.6-6.20) M/mm3 Hgb 14.7 (14.0-18.0) g/dL Hct 43.7 (42.0-52.0) % MCV 93.0 (80-100) fl MCH 31.3 (26-34) pg MCHC 33.6 (32-36) g/dl RDW 12.3 (11.5-14.5) % Plt Count 193 (150-375) k/mm3 MPV 9.0 (7.4-10.4) fl Immature Gran % (Auto) 0.5 (0-0.5) % Neut % (Auto) 62.2 (45.5-73.1) % Lymph % (Auto) 25.4 (18.3-44.2) % [place] % (Auto) 8.9 H (2.6-8.5) % Eos % (Auto) 2.6 (0-4.4) % Baso % (Auto) 0.4 (0.2-1.2) % Lymph # (Auto) 2.47 (0.9-3.2) K/mm3 [place] # (Auto) 0.9 H (0.1-0.6) K/mm3 Eos # (Auto) 0.3 (0-0.3) K/mm3 Baso # (Auto) 0.0 (0.0-0.1) K/mm3 Abs Immat Gran (auto) 0.05 H (0.00-0.031) K/mm3 Absolute Neuts (auto) 6.0 (1.3-6.7) K/mm3 Absolute Nucleated RBC 0.000 (0.0-0.012) K/mm3 Nucleated RBC % 0.0 (0.0-0.2) % Sodium 135 L (137-145) mmol/L Potassium 4.4 (3.4-5.0) mmol/L Chloride 101 (98-107) mmol/L Carbon Dioxide 27 (22-30) mmol/L Anion Gap 7 (4-12) mmol/L BUN 22 H (9-20) mg/dL Creatinine 1.20 (0.7-1.3) mg/dL Estim Creat Clear Calc 41 ml/min Estimated GFR 58 L (59 - ) Glucose 119 H (65-110) mg/dL Calcium 9.2 (8.4-10.2) mg/dL Total Bilirubin 0.7 (0.2-1.3) mg/dL AST 25 (17-59) U/L ALT 18 (6-50) U/L Alkaline Phosphatase 95 (38-126) U/L Total Protein 8.0 (6.3-8.2) g/dL Albumin 4.5 (3.5-5.1) g/dL Lipase 122 (23-300) U/L Urine Color Dark nicole (Yellow) Urine Appearance Turbid H (Clear) Urine pH 5.0 (5.0-9.0) Ur Specific [place] > 1.045 H (1.001-1.035) Urine Protein 2+ H (Negative) mg/dL Urine Glucose (UA) Negative (Negative) mg/dL Urine Ketones Negative (Negative) mg/dL Ur Blood (Man) 3+ H (Negative) Urine Nitrate Negative (Negative) Urine Bilirubin Negative (Negative) Urine Urobilinogen 0.2 (<2.0) mg/dL Add Ur Microanalysis Reviewed Leukocyte Esterase Rfl 1+ H (Negative) PAYAL/UL Urine RBC >100 H (0-2) /hpf Urine WBC 11-20 H (0-3) /hpf Ur Squamous Epith Cells None seen (Few) /hpf Urine Bacteria None seen /hpf Urine Casts 0-2 Imaging Data Radiologist's impression: ITS Impressions Abdomen/Pelvis CT 07/25/24 06:12 Impression: Possible developing left upper pole renal mass with underlying atrophic changes of the renal pole. Pre and postcontrast MR or CT urogram recommended to further assess for possible solid mass. Small right inguinal hernia contains a focal small bowel. No bowel obstruction or bowel wall thickening. Discharge Plan Discharge Clinical Impression: Hematuria, Urinary tract infection Patient Disposition: Home, Self-Care Condition: Improved Instructions: Antibiotic Form, Urinary Tract Infection in Men (DC) Additional Instructions: Please take the prescribed antibiotic as instructed for your urinary tract infection and hematuria. You will need to have an MR or a CT urogram performed to evaluate for renal mass. Follow-up with your urologist within the next 3-5 days. Return to the emergency department if any new or worsening symptoms develop. Prescriptions: New cephalexin 500 mg capsule 500 mg PO Q12H 7 Days Qty: 14 0RF hydrocodone-acetaminophen 5-325 mg tablet 1 tablet PO Q8H PRN (Reason: pain) Qty: 7 0RF No Action amlodipine 5 mg tablet 5 mg PO DAILY losartan 100 mg tablet 100 mg PO DAILY Rx Instructions: IN THE MORNING cholecalciferol (vitamin D3) [Vitamin D3] 125 mcg (5,000 unit) Tablet 125 mcg PO DAILY Trelegy Ellipta 200-62.5-25 mcg blister with device 1 inh INHALATION DAILY Rx Instructions: IN THE MORNING albuterol sulfate 2 puff inhalation PRN PRN (Reason: Dyspnea) Rx Instructions: PATIENT USES DURING EMERGENCIES Follow-up/Referrals: José Evangelista MD [Physician] - 3 Days Sebastián,JOSE Cheung [Primary Care Provider] - Time of Disposition: 06:09
[2024-07-25 06:05] LABS: Add Urine Microscopic? YES; Appearance Urine Turbid (Clear); Bacteria Urine None Seen /hpf; Bilirubin Urine Negative (Negative); Blood Urine 3+ (Negative); Color Urine Dark Amber (Yellow); Glucose Urine UA Negative (Negative); Ketones Urine Negative (Negative); Leukocyte Esterase Ur 1+ LEU/UL (Negative); Need Manual Microscopic Reviewed; Nitrate Urine Negative (Negative); Non Pathogenic Casts 0-2; Protein Urine 2+ mg/dL (Negative); RBC Urine >100 /hpf (0-2); Specific Grav Ur > 1.045 (1.001-1.035); Squamous Epithelial Cell Urine None Seen /hpf (Few); Urobilinogen Urine 0.2 mg/dL (<2.0)
[2024-07-25] MEDS: cefTRIAXone 2 GM/NS 100 ML 2 GM/100 ML BAG IVPB (06:24)
== END 2024-07-25 07:13 | disposition home or self-care (01) ==
PROVIDERS: Emergency Provider Emergency Medicine; PCP Physician Assistant
DX: N39.0 Urinary tract infection, site not specified (principal); R31.9 Hematuria, unspecified; J44.9 Chronic obstructive pulmonary disease, unspecified; I10 Essential (primary) hypertension; M35.3 Polymyalgia rheumatica; Z85.72 Personal history of non-Hodgkin lymphomas; Z87.891 Personal history of nicotine dependence; Z79.899 Other long term (current) drug therapy
CPT/HCPCS: 36415; 74177; 80053; 81001; 83690; 85025; 87086; 96365; 96375; 96376; 99284; J0696; J1885; J2270; J2405; J7030; Q9967

== ENCOUNTER 2024-07-29 04:13 | Emergency (ER) | payer MEDICARE, SELFPAY ==
--- NOTE | ~2024-07-29 | CT_ITS ---
EXAMINATION: CT abdomen pelvis w con DATE: 07/29/2024 07:53 INDICATION: Lower abdominal pain. TECHNIQUE: Computed tomography (CT) of the abdomen and pelvis was performed with 100 mL Omnipaque 350 intravenous contrast. Automated exposure control and iterative reconstruction technique were employe d. The dose-length product was 490.70 mGy-cm. COMPARISON: CT abdomen and pelvis 07/25/2024 FINDINGS: The visualized portions of the lung bases demonstrate emphysema. No pleural effusion. The h eart size is normal. There is a trace pericardial effusion. The liver and gallbladder are normal. The re is a 7 mm cyst in the spleen. The main pancreatic duct is dilated to 6 mm, and there is a calcific ation in the tail of the pancreas, consistent with chronic pancreatitis. The adrenal glands and right kidney are normal. There is a 3.2 cm mass in left kidney upper pole collecting system with cortical thinning of left kidney upper pole. There is a 4 mm mass at left ureterovesicular junction. There is mild left hydronephrosis and hydroureter. The prostate is mildly enlarged. There is a right inguinal hernia containing nonobstructed small bowel. There is a left inguinal hernia containing fat. There is diverticulosis of the colon without evidence of diverticulitis. The appendix is normal. There is a s mall sliding hiatal hernia. There are no pathologically enlarged lymph nodes. There is no free intrap eritoneal fluid. There is thoracolumbar levoscoliosis and moderate spondylosis. IMPRESSION: 1. 3.2 cm mass in the left kidney upper pole collecting system suspicious for urothelial carcinoma. 2. Mild left hydronephrosis and hydroureter. 4 mm mass at the left ureterovesicular junction suspicio us for urothelial carcinoma. 3. Right inguinal hernia containing nonobstructed small bowel. Left inguinal hernia containing fat. Reviewed, dictated and finalized at location A. WORKER IMPRESSION: 1. 3.2 cm mass in the left kidney upper pole collecting system suspicious for u rothelial carcinoma. 2. Mild left hydronephrosis and hydroureter. 4 mm mass at the left ureterovesic ular junction suspicious for urothelial carcinoma. 3. Right inguinal hernia containing nonobstructed small bowel. Left inguinal he rnia containing fat.
[2024-07-29 04:15] VITALS: BP 146/66; PULSE 88; RESP 16; TEMP 36.4; O2SAT 94
[2024-07-29 04:37] LABS: Basophils Percent Auto 0.5 % (0.2-1.2); Eosinophils Absolute Auto 0.2 K/mm3 (0-0.3); Eosinophils Percent Auto 2.4 % (0-4.4); Hematocrit 43.6 % (42.0-52.0); Hemoglobin 14.6 g/dL (14.0-18.0); Immature Granulocyte Absolute 0.03 K/mm3 (0.00-0.031); Immature Granulocyte Percent A 0.4 % (0-0.5); Lymphocytes Absolute Auto 2.14 K/mm3 (0.9-3.2); Lymphocytes Percent Auto 25.9 % (18.3-44.2); Mean Corpuscular HGB Conc 33.5 g/dl (32-36); Mean Corpuscular Hemoglobin 31.3 pg (26-34); Mean Corpuscular Volume 93.6 fl (80-100); Mean Platelet Volume 8.9 fl (7.4-10.4); Monocytes Absolute Auto 0.7 K/mm3 (0.1-0.6); Monocytes Percent Auto 8.1 % (2.6-8.5); Neutrophils Absolute Auto 5.2 K/mm3 (1.3-6.7); Neutrophils Percent Auto 62.7 % (45.5-73.1); Platelet Count Result 196 k/mm3 (150-375); Red Blood Count 4.66 M/mm3 (4.6-6.20); Red Cell Distribution Width 12.6 % (11.5-14.5); White Blood Count 8.3 K/mm3 (4.5-10.0)
[2024-07-29 05:06] LABS: Alanine Aminotransferase 18 U/L (6-50); Albumin Level 4.5 g/dL (3.5-5.1); Alkaline Phosphatase 83 U/L (38-126); Anion Gap 8 mmol/L (4-12); Aspartate Amino Transferase 25 U/L (17-59); Blood Urea Nitrogen 17 mg/dL (9-20); Calcium 9.4 mg/dL (8.4-10.2); Carbon Dioxide 25 mmol/L (22-30); Chloride 103 mmol/L (98-107); Estimated CRCL calculation 46 ml/min; Estimated Glomerular Filt Rate > 60; Glucose 119 mg/dL (65-110); Lipase 75 U/L (23-300); Potassium 4.4 mmol/L (3.4-5.0); Sodium 136 mmol/L (137-145)
[2024-07-29 05:17] LABS: Add Urine Microscopic? YES; Appearance Urine Cloudy (Clear); Bacteria Urine None Seen /hpf; Bilirubin Urine Negative (Negative); Blood Urine 3+ (Negative); Color Urine Yellow (Yellow); Glucose Urine UA Negative (Negative); Ketones Urine Negative (Negative); Leukocyte Esterase Ur Negative LEU/UL (Negative); Nitrate Urine Negative (Negative); Non Pathogenic Casts 0-2; Protein Urine 1+ mg/dL (Negative); RBC Urine >100 /hpf (0-2); Specific Grav Ur 1.019 (1.001-1.035); Squamous Epithelial Cell Urine None Seen /hpf (Few); Urobilinogen Urine 0.2 mg/dL (<2.0); WBC Urine 0-5 /hpf (0-3)
[2024-07-29 06:35] VITALS: PULSE 64; RESP 18; O2SAT 97
--- NOTE | 2024-07-29 07:30 | PC.NURSE ---
Assumed care of pt. Pt c/o lower abd pain that he rates 10. Abd soft with active bowel sounds. Presents with hematuria. Dr. Wolff informed of pain
--- NOTE | 2024-07-29 07:35 | ED.ABDPAIN ---
HPI - Abdominal Pain General Chief Complaint: Abdominal Pain Stated Complaint: bad pain; stomach area Time Seen by Provider: 07/29/24 07:28 History of Present Illness HPI narrative: Pt presents with persistent low abdominal pain. Pt here a few days ago fro same thing. Pt diagnosed with renal mass and followed up with Dr Evangelista and had cystoscopy. Pt scheduled for further testing. Pt says pain is across low abdomen and is similar to what it was when he had the CT but worse. Pt is able to void and just had BM which didn't help much. Related Data Home Medications Medication Instructions Recorded Confirmed albuterol sulfate 2 puff inhalation PRN PRN Dyspnea 05/03/22 12/29/23 amlodipine 5 mg tablet 5 mg PO DAILY 05/03/22 12/29/23 cholecalciferol (vitamin D3) 125 125 mcg PO DAILY 05/03/22 12/29/23 mcg (5,000 unit) tablet (Vitamin D3) fluticasone fur. 200 mcg-umeclid 1 inh inhalation DAILY 05/03/22 12/29/23 62.5 mcg-vilant 25 mcg inhalat.powder (Trelegy Ellipta) losartan 100 mg tablet 100 mg PO DAILY 05/03/22 12/29/23 Allergies Allergy/AdvReac Type Severity Reaction Status Date / Time No Known Allergies Allergy Verified 12/29/23 10:48 Review of Systems Review of Systems: All systems reviewed & are unremarkable except as noted in HPI and below PMFSH Past Medical History Medical History Chronic obstructive pulmonary disease Diverticulitis Elevated PSA Hypertension Non Hodgkin's lymphoma Polymyalgia rheumatica Rupture of left biceps tendon Surgical History Surgical History History of colonoscopy (01/2011) Per Dr. Sohan Escobedo. Diverticulosis and internal hemorrhoids. History of mandibular surgery (1963) Repair of broken jaw. History of orthopedic surgery Repair of left bicep tendon rupture. Family History Family History Father Acute myocardial infarction Sibling Hypertension Son Leukemia Sibling Breast cancer Social History Social History Social History: Surrogate medical decision maker: Bianca Constantino, spouse. Code status: Full code. Smoking packs per day: 1 Smoking cigarettes per day: 20.0 Years smoked: 53 Smoking pack-years: 53.00 Smoking status: Former smoker Tobacco type: cigarettes Second hand tobacco smoke exposure: No Additional smoking assessment comments: down to 1/2 pack when he quit Alcohol intake: former Substance use: never Additional living arrangements comments: The patient lives with his in [place]. Additional occupation/education comments: Retired. Spiritual care concerns: No Exam Const: General: healthy appearing and no acute distress Nutritional Appearance: well nourished Limitations: no limitations Resp: Effort & Inspection: normal respiratory effort Auscultation: clear to auscultation bilaterally Cardio: Rate: regular rate Rhythm: regular rhythm GI: GI Palp: Yes Soft to palpation and Yes Tenderness to palpation present (GI) (low abd) Auscultation: normal bowel sounds : General: Yes CVA tenderness and Yes no CVA tenderness Penis: Yes normal penis Scrotum: scrotum normal Back/Spine/Pelvis: Back: no CVA tenderness Skin: General skin exam: normal color Wounds: no wounds Neuro: General: patient oriented x3, moves all extremities, no meningeal signs, no focal motor deficits and CN's II-XI intact bilaterally Speech: normal speech Extrem: General: normal to inspection and no clubbing, cyanosis or edema Psych: Mental Status: mental status grossly normal Affect: normal affect Attitude: cooperative Course Vital Signs Vital signs: Vital Signs Temperature 97.6 F 07/29/24 04:15 Pulse Rate 88 07/29/24 04:15 Respiratory Rate 16 07/29/24 04:15 Blood Pressure 146/66 H 07/29/24 04:15 Pulse Oximetry 94 07/29/24 04:15 Oxygen Delivery Room Air 07/29/24 04:15 Temperature 98.2 F 07/29/24 09:22 Pulse Rate 65 07/29/24 09:22 Respiratory Rate 18 07/29/24 09:22 Blood Pressure 135/69 07/29/24 09:22 Pulse Oximetry 97 07/29/24 09:22 Oxygen Delivery Room Air 07/29/24 04:15 MDM - Abdominal Pain MDM Narrative Medical decision making narrative: Pt seen for same low abd pain last week. CT revealed renal mass asnd has seen urology and had cysto since. Pain is worse will repeat labs and UA and CT and treat pain and call urology. CT no change. Pt feels much better after pain meds. discussed with dr shelley no further work up needed here. will try new pain meds and home. Differential Diagnosis Differential diagnosis: Likely abdominal pain, calculus of kidney, constipation, diverticulitis and small bowel obstruction Lab Data 07/29/24 04:23 07/29/24 04:23 Labs: Lab Results 07/29/24 07/29/24 Range/Units 04:23 05:04 WBC 8.3 (4.5-10.0) K/mm3 RBC 4.66 (4.6-6.20) M/mm3 Hgb 14.6 (14.0-18.0) g/dL Hct 43.6 (42.0-52.0) % MCV 93.6 (80-100) fl MCH 31.3 (26-34) pg MCHC 33.5 (32-36) g/dl RDW 12.6 (11.5-14.5) % Plt Count 196 (150-375) k/mm3 MPV 8.9 (7.4-10.4) fl Immature Gran % (Auto) 0.4 (0-0.5) % Neut % (Auto) 62.7 (45.5-73.1) % Lymph % (Auto) 25.9 (18.3-44.2) % [place] % (Auto) 8.1 (2.6-8.5) % Eos % (Auto) 2.4 (0-4.4) % Baso % (Auto) 0.5 (0.2-1.2) % Lymph # (Auto) 2.14 (0.9-3.2) K/mm3 [place] # (Auto) 0.7 H (0.1-0.6) K/mm3 Eos # (Auto) 0.2 (0-0.3) K/mm3 Baso # (Auto) 0.0 (0.0-0.1) K/mm3 Abs Immat Gran (auto) 0.03 (0.00-0.031) K/mm3 Absolute Neuts (auto) 5.2 (1.3-6.7) K/mm3 Absolute Nucleated RBC 0.000 (0.0-0.012) K/mm3 Nucleated RBC % 0.0 (0.0-0.2) % Sodium 136 L (137-145) mmol/L Potassium 4.4 (3.4-5.0) mmol/L Chloride 103 (98-107) mmol/L Carbon Dioxide 25 (22-30) mmol/L Anion Gap 8 (4-12) mmol/L BUN 17 (9-20) mg/dL Creatinine 1.10 (0.7-1.3) mg/dL Estim Creat Clear Calc 46 ml/min Estimated GFR > 60 (59 - ) Glucose 119 H (65-110) mg/dL Calcium 9.4 (8.4-10.2) mg/dL Total Bilirubin 1.0 (0.2-1.3) mg/dL AST 25 (17-59) U/L ALT 18 (6-50) U/L Alkaline Phosphatase 83 (38-126) U/L Total Protein 8.0 (6.3-8.2) g/dL Albumin 4.5 (3.5-5.1) g/dL Lipase 75 (23-300) U/L Urine Color Yellow (Yellow) Urine Appearance Cloudy H (Clear) Urine pH 5.0 (5.0-9.0) Ur Specific [place] 1.019 (1.001-1.035) Urine Protein 1+ H (Negative) mg/dL Urine Glucose (UA) Negative (Negative) mg/dL Urine Ketones Negative (Negative) mg/dL Ur Blood (Man) 3+ H (Negative) Urine Nitrate Negative (Negative) Urine Bilirubin Negative (Negative) Urine Urobilinogen 0.2 (<2.0) mg/dL Leukocyte Esterase Rfl Negative (Negative) PAYAL/UL Urine RBC >100 H (0-2) /hpf Urine WBC 0-5 (0-3) /hpf Ur Squamous Epith Cells None seen (Few) /hpf Urine Bacteria None seen /hpf Urine Casts 0-2 Imaging Data Radiologist's impression: ITS Impressions Abdomen/Pelvis CT 07/29/24 07:56 IMPRESSION: 1. 3.2 cm mass in the left kidney upper pole collecting system suspicious for urothelial carcinoma. 2. Mild left hydronephrosis and hydroureter. 4 mm mass at the left ureterovesicular junction suspicious for urothelial carcinoma. 3. Right inguinal hernia containing nonobstructed small bowel. Left inguinal hernia containing fat. Discharge Plan Discharge Clinical Impression: Abdominal pain, lower Patient Disposition: Home, Self-Care Condition: Improved Instructions: Antibiotic Form, Abdominal Pain (ED) Prescriptions: New oxycodone-acetaminophen [Percocet] 5-325 mg tablet 1 tablet PO Q6H PRN (Reason: pain) Qty: 10 0RF No Action cephalexin 500 mg capsule 500 mg PO Q12H 7 Days Qty: 14 0RF hydrocodone-acetaminophen 5-325 mg tablet 1 tablet PO Q8H PRN (Reason: pain) Qty: 7 0RF amlodipine 5 mg tablet 5 mg PO DAILY losartan 100 mg tablet 100 mg PO DAILY Rx Instructions: IN THE MORNING cholecalciferol (vitamin D3) [Vitamin D3] 125 mcg (5,000 unit) Tablet 125 mcg PO DAILY Trelegy Ellipta 200-62.5-25 mcg blister with device 1 inh INHALATION DAILY Rx Instructions: IN THE MORNING albuterol sulfate 2 puff inhalation PRN PRN (Reason: Dyspnea) Rx Instructions: PATIENT USES DURING EMERGENCIES Follow-up/Referrals: Sebastián,JOSE Cheung [Primary Care Provider] -
[2024-07-29] MEDS: MORPHINE SULFATE (*CRX) 4 MG/ML INJ IV PUSH (07:39)
[2024-07-29 07:41] VITALS: BP 139/65; PULSE 65; RESP 18; TEMP 36.6; O2SAT 98
[2024-07-29 09:22] VITALS: BP 135/69; PULSE 65; RESP 18; TEMP 36.8; O2SAT 97
== END 2024-07-29 10:06 | disposition home or self-care (01) ==
PROVIDERS: Student in an Organized Health Care Education/Training Program; Emergency Provider Emergency Medicine; PCP Physician Assistant
DX: R10.30 Lower abdominal pain, unspecified (principal); N28.89 Other specified disorders of kidney and ureter; K40.90 Unilateral inguinal hernia, without obstruction or gangrene, not specified as recurrent; J44.9 Chronic obstructive pulmonary disease, unspecified; I10 Essential (primary) hypertension; Z85.72 Personal history of non-Hodgkin lymphomas; M35.3 Polymyalgia rheumatica
CPT/HCPCS: 36415; 74177; 80053; 81001; 83690; 85025; 96374; 99284; J2270; Q9967

== ENCOUNTER 2024-08-08 13:40 | Outpatient (CLI) | payer MEDICARE, SELFPAY ==
--- NOTE | ~2024-08-08 | PE_ITS ---
EXAMINATION: PET_PETPSMAST_PT DATE: 08/08/2024 15:43 INDICATION: Malignant neoplasm of prostate. TECHNIQUE: 5.092 mCi of Ga-68 gozetotide was administered intravenously. Low dose computed tomography (CT) images were acquired from the base of the brain to the proximal thighs for attenuation correcti on and anatomic localization. Automated exposure control was employed. Dose-length product (DLP) was 935 mGy-cm. Positron emission tomography (PET) images were acquired in the same distribution. COMPARISON: CT abdomen and pelvis 07/29/2024, chest CT 08/15/22 FINDINGS: Head/neck: There is a 4 mm nodule in left thyroid lobe, likely not clinically significant. There are no pathologically enlarged lymph nodes. Chest: There is moderate emphysema. There is a 1.3 cm nodule in right lung upper lobe with maximum MATA V of 1.9. No pleural effusion. The heart size is normal. There are coronary artery calcifications. No pericardial effusion. There is a small sliding hiatal hernia. Abdomen/pelvis/proximal thighs: The liver, gallbladder, spleen, pancreas, adrenal glands, and right k idney are normal. There is mild atrophy of left kidney. There is a 3.3 cm mass in left kidney. There is a left inguinal hernia containing fat. There is a right inguinal hernia containing nonobstructed s mall bowel. There is diverticulosis of the colon without evidence of diverticulitis. The appendix is normal. There are no pathologically enlarged lymph nodes. The prostate is moderately enlarged. There is focal increased activity in the prostate maximum SUV of 16.1. There is no free intraperitoneal flu id. There is no osseous malignancy. IMPRESSION: 1. Moderately enlarged prostate with focal increased activity, consistent with primary malignancy. 2. 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 3. 1.3 cm nodule in right lung upper lobe, new from 08/15/2022. This finding may be primary bronchoge nasreen carcinoma or metastatic disease. 4. Right inguinal hernia containing nonobstructed small bowel. Reviewed, dictated and finalized at location A. [employer] IMPRESSION: 1. Moderately enlarged prostate with focal increased activity, consistent with primary malignancy. 2. 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 3. 1.3 cm nodule in right lung upper lobe, new from 08/15/2022. This finding ma y be primary bronchogenic carcinoma or metastatic disease. 4. Right inguinal hernia containing nonobstructed small bowel.
== END 2024-08-08 13:41 | disposition home or self-care (01) ==
PROVIDERS: PCP Physician Assistant; Visit Provider Urology
DX: C61 Malignant neoplasm of prostate (principal); N28.89 Other specified disorders of kidney and ureter; R91.1 Solitary pulmonary nodule; K40.90 Unilateral inguinal hernia, without obstruction or gangrene, not specified as recurrent
CPT/HCPCS: 78815; A9596

== ENCOUNTER 2024-08-12 10:08 | Outpatient (CLI) | payer MEDICARE, SELFPAY ==
--- NOTE | ~2024-08-12 | US_ITS ---
EXAMINATION: US retroperitoneal comp DATE: 08/12/2024 11:36 INDICATION: Renal mass TECHNIQUE: Multiple ultrasound grayscale images of the kidneys were obtained. COMPARISON: CT dated 07/29/2024 FINDINGS: The right kidney measures 11.2 x 5.2 x 4.6 cm. The left kidney measures 10.7 x 3.8 x 4.0 cm. The kidn eys demonstrate normal echogenicity. No right-sided hydronephrosis. There is focal rectal atrophy in the mid left kidney. There is mild left hydronephrosis which delineates a 2.3 x 2.2 x 2.1 cm echogeni c mass within one of the dilated calyces in the upper pole the left kidney. No stones identified. The bladder is normal. IMPRESSION: 1. Mild left hydronephrosis with 2.3 cm echogenic mass within the dilated calyces of the upper pole the left kidney concerning for urothelial carcinoma. Reviewed, dictated and finalized at location A. [employer] IMPRESSION: 1. Mild left hydronephrosis with 2.3 cm echogenic mass within the dilated [place] nato of the upper pole the left kidney concerning for urothelial carcinoma.
== END 2024-08-12 10:09 | disposition home or self-care (01) ==
PROVIDERS: PCP Physician Assistant; Visit Provider Urology
DX: N13.30 Unspecified hydronephrosis (principal); N28.89 Other specified disorders of kidney and ureter
CPT/HCPCS: 76770